=== PATIENT | female | born 1945 | race Caucasian/White ===

== ENCOUNTER 2021-05-14 14:04 | Inpatient (IN) ==
[2021-05-14 14:51] LABS: Basophils # (auto) 0.04 K/uL (0-0.2); Basophils % (auto) 0.4 %; Eosinophils # (auto) 0.23 K/uL (0-0.5); Eosinophils % (auto) 2.3 %; Hematocrit (blood only) 38.5 % (37-47); Hemoglobin 12.7 g/dL (12.0-16.0); Immature Granulocytes # (auto) 0.01 K/uL (0.00-0.02); Immature Granulocytes % (auto) 0.1 %; Lymphocytes # (auto) 2.02 K/uL (1.2-3.4); Lymphocytes % (auto) 20.4 %; Mean Corpuscular Hemoglobin 29.7 pg (25-34); Mean Corpuscular Volume 90.2 fL (80-100); Mean Platelet Volume 10.2 fL (7.4-10.4); Monocytes # (auto) 0.91 K/uL (0.11-0.59); Monocytes % (auto) 9.2 %; Neutrophils % (auto) 67.6 %; Platelet Count 337 K/uL (130-400); RDW Coefficient of Variation 13.6 % (11.5-14.5); RDW Standard Deviation 44.8 fL (36.4-46.3); Red Blood Count 4.27 M/uL (4.2-5.4); White Blood Count 9.91 K/uL (4.8-10.8)
[2021-05-14 15:08] LABS: Albumin Level 3.5 gm/dl (3.4-5.0); BUN Creatinine Ratio 14.4 (10-20); Calcium 10.4 mg/dl (8.5-10.1); Creatinine Clr Calc Pharmacy 49.4 ml/min; Est GFR (African American) 73.5 ml/min; Est GFR (Non-African American) 63.4 ml/min; Potassium 4.3 mmol/L (3.5-5.1)
[2021-05-14 15:10] LABS: Albumin Globulin Ratio 0.7 (0.9-2); Bilirubin,Total 0.3 mg/dl (0.2-1); Total Protein 8.5 gm/dl (6.4-8.2)
--- NOTE | 2021-05-14 18:56 | Emergency Department Note ---
History of Present Illness General Chief complaint: Abdominal Pain Stated complaint: ACUTE DIVERVERTICULITIS RX Time Seen by Provider: 05/14/21 18:46 Source: patient History of Present Illness Provider complaint: Abdominal pain Onset (ago): day(s) Location: abdomen and left Severity: mild Pain Consistency: + intermittent Maximum Pain Intensity: 3 Quality: + aching Relieved By: + none Exacerbated By: + none Associated symptoms: + fever/chills; no chest pain, no cough, no nausea/vomiting or no shortness of breath This is a 75-year-old female who presents with lower abdominal pain starting 6 days ago. She states it is in the middle of her lower abdomen and the left side. It is now radiating slightly to the right side. She describes it as a dull aching pain. No modifying factors. It did feel better for a few days but then got worse today. She called her diesel engine engineer who ordered a CT scan and blood work. The CAT scan showed an abscess with diverticulitis so she was sent here. The patient has had 6 episodes of diverticulitis since 2009. She states that she called her doctor on the and the doctor ordered Cipro and Flagyl for her. She never picked up the prescription because she stated that she felt better but then she felt worse today. She did have a fever of 101 today. She denies any cough or cold symptoms, chest pain, shortness of breath, diarrhea or urinary symptoms. She states that she is vaccinated for COVID-19 and has had a booster. Home Medications Medication Instructions Recorded Confirmed Type aspirin 81 mg tablet,delayed 81 mg PO QAM 10/20/18 05/13/21 History release butterbur root extract 50 mg 50 mg PO BID 04/19/19 05/13/21 History capsule (Petadolex) famotidine 20 mg tablet 20 mg PO BID 08/15/19 05/13/21 History fluticasone furoate 27.5 1 sprays INTNAS BID #5.9 ml 09/04/19 05/13/21 Rx mcg/actuation nasal spray,suspension acetaminophen 325 mg capsule 325 mg PO QID PRN 01/25/20 05/13/21 History (Tylenol) jvygtwy-swbtwufqppcmx-katizzeo 250 1 tab PO Q6H PRN 01/25/20 05/13/21 History mg-250 mg-65 mg tablet (Excedrin Migraine) pseudoephedrine HCl 30 mg tablet 30 mg PO Q6H PRN 01/25/20 05/13/21 History (Sudafed) atorvastatin 20 mg tablet (Lipitor) 20 mg PO QAM #90 tab 08/01/20 05/13/21 Rx levothyroxine 112 mcg tablet 112 mcg PO QAM #90 tab 11/06/20 05/13/21 Rx (Synthroid) vit A 300 mcg-C 200 mg-E 27 1 tab PO DAILY #30 tab 11/25/20 05/13/21 Rx os-przjfahy-xahvfl-lutein tablet (Eye Multivitamin With Lutein) mecobalamin (vitamin B12) 1,000 1,000 mcg PO DAILY #30 tab 11/26/20 05/13/21 Rx mcg chewable tablet cholecalciferol (vitamin D3) 50 100 mcg PO DAILY #30 cap 04/03/21 05/13/21 Rx mcg (2,000 unit) capsule omeprazole 20 mg capsule,delayed 20 mg PO DAILY PRN #30 cap 05/05/21 05/13/21 Rx release wheat dextrin 3 gram/4 gram oral 1.5 g PO BID 05/05/21 05/13/21 History powder (Benefiber Sugar Free (dextrin)) rizatriptan 10 mg tablet (Maxalt) See Rx Instructions PO .COMPLEX 05/13/21 Rx #10 tab Allergies Allergy/AdvReac Type Severity Reaction Status Date / Time No Known Drug Allergies Allergy Verified 05/13/21 14:32 Past Med/Surg History Medical History Diverticulitis Dry eye syndrome RT EYE Eustachian tube dysfunction History of diverticulitis Hyperlipidemia Hypertension never on medication previously elevated numbers but in generally within normal limits Hypothyroidism Migraine Osteoarthritis Surgical History H/O hand surgery 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) History of cataract surgery LEFT History of colonoscopy History of esophagogastroduodenoscopy (EGD) Hx of wisdom tooth extraction Family History Father Cardiac disorder Myocardial infarction Hypertension Uncle Lung disease Family history of diabetes mellitus Other Family history non-contributory Denies family history of Colon cancer Ovarian cancer Prostate cancer Breast cancer Social History Smoking Status: Former smoker Tobacco Type: Cigarettes packs per day: 0.5; Years Smoked: 10; Second Hand Exposure: No; Do You Dip or Chew Tobacco: No; Tobacco Cessation Education Requested by Patient: No Hx Alcohol Use: Yes Alcohol type: wine Hx Substance Use: No Preferred Language: Yakut Communication Ability: Effective Visual Impairment: No Limitations Hearing Ability: Use of Hearing Aid [place] Operator Required: No Beliefs That Will Affect Care: None marital status: Current Living Situation: Spouse current occupational status: retired Other Information That Helps Us Care for You: No Feels Safe at Home: Yes Safety Concerns: Feels Safe At This Time Childhood Exposure to Second-Hand Smoke: Yes Dental Care, Regularly: Yes Physical Activity Frequency: 5-6 Times per Week Seatbelt Use: always Sunscreen Use: Yes Assistive Devices: Glasses and Hearing Aid - Bilateral Review of Systems See HPI for pertinent positives & negatives. and A total of 10 systems reviewed and were otherwise negative Physical Exam Vital Signs Vital Signs - 24 hr 05/14/21 14:12 05/14/21 19:20 Temperature 36.3 C L Temperature Source Temporal Artery Scan Pulse Rate 53 L Pulse Rate [Finger] 52 L Respiratory Rate 16 17 Blood Pressure 116/84 Blood Pressure [Left Arm] 144/81 H Blood Pressure Mean 94 Blood Pressure Mean [Left Arm] 102 Blood Pressure Position [Left Arm] Lying Pulse Oximetry 98 98 Sepsis Recent Fever Within 48 Hours No Sepsis New/Unexplained Change in Mental Status No Sepsis Action Taken by Nursing No Action Required Constitutional: Vital signs reviewed. Eyes: Pupils are equal round reactive to light. Conjunctiva are noninjected. ENT: Pharynx is clear without erythema or exudate. Mucous membranes are moist. Neck supple without meningeal signs. Respiratory: Clear to auscultation bilaterally. Breath sounds are equal bilaterally. Cardiovascular: Regular rate and rhythm. No rubs or gallops. GI: Soft, nondistended with mild left lower quadrant tenderness. No guarding. Bowel sounds are present. Musculoskeletal: No peripheral edema. No lower extremity tenderness. Integumentary: No cyanosis. or jaundice. Neurological: The patient is awake and alert. No focal deficits. Psychiatric: Normal affect. Not anxious appearing. Course Administered Medications Discontinued Medications Piperacillin Sod/Tazobactam Sod (Zosyn) 4.5 gm in 120 mls @ 240 mls/hr IV NOW ONE Stop: 05/14/21 19:26 Last Infusion: 05/14/21 20:41 Dose: 0 mls/hr Documented by: [id number] Admin: 05/14/21 20:09 Dose: 240 mls/hr Documented by: [id number] Medical Decision Making Differential Diagnosis Diverticulitis, perforation, abscess, colitis, bacteremia Medical Records Attestation: I reviewed the patient's medical records. I did perform a limited focused review of portions of the patient's old chart on the electronic medical record. The patient had blood work today which showed an unremarkable CBC. She also had a CT scan of the abdomen pelvis which showed the following:IMPRESSION: 1. Moderate sigmoid diverticulosis with evidence of acute sigmoid divertic ulitis. 2. There is a 2.4 x 1.4 cm focus of phlegmonous change/developing abscess immediately adjacent to the sigmoid colon. 3. No intraperitoneal free air is identified. Home Medications Current Medication List: was personally reviewed by me Laboratory Data Attestation: I reviewed the patient's lab results. Result diagrams: 05/14/21 14:41 05/14/21 14:41 Lab Results 05/14/21 05/14/21 05/14/21 Range/Units 14:41 14:41 19:15 WBC 9.91 (4.8-10.8) K/uL RBC 4.27 (4.2-5.4) M/uL Hgb 12.7 (12.0-16.0) g/dL Hct 38.5 (37-47) % MCV 90.2 (80-100) fL MCH 29.7 (25-34) pg MCHC 33.0 (32-36) g/dL RDW Std Deviation 44.8 (36.4-46.3) fL RDW Coeff of Abel 13.6 (11.5-14.5) % Plt Count 337 (130-400) K/uL MPV 10.2 (7.4-10.4) fL Immature Gran % (Auto) 0.1 % Neut % (Auto) 67.6 % Lymph % (Auto) 20.4 % George % (Auto) 9.2 % Eos % (Auto) 2.3 % Baso % (Auto) 0.4 % Neut # (Auto) 6.70 H (1.4-6.5) K/uL Lymph # (Auto) 2.02 (1.2-3.4) K/uL George # (Auto) 0.91 H (0.11-0.59) K/uL Eos # (Auto) 0.23 (0-0.5) K/uL Baso # (Auto) 0.04 (0-0.2) K/uL Immature Gran # (Auto) 0.01 (0.00-0.02) K/uL Sodium 137 (136-145) mmol/L Potassium 4.3 (3.5-5.1) mmol/L Chloride 103 (98-107) mmol/L Carbon Dioxide 26 (21-32) mmol/L Anion Gap 8.0 (3-11) BUN 13 (7-18) mg/dl Creatinine 0.89 (0.6-1.2) mg/dl Est Cr Clr Drug Dosing 49.4 ml/min Est GFR ( Amer) 73.5 ml/min Est GFR (Non-Af Amer) 63.4 ml/min BUN/Creatinine Ratio 14.4 (10-20) Glucose 91 (70-99) mg/dl Calcium 10.4 H (8.5-10.1) mg/dl Total Bilirubin 0.3 (0.2-1) mg/dl AST 20 (15-37) U/L ALT 26 (12-78) U/L Alkaline Phosphatase 117 (45-117) U/L Total Protein 8.5 H (6.4-8.2) gm/dl Albumin 3.5 (3.4-5.0) gm/dl Globulin 5.0 H (2.5-4.0) gm/dl Albumin/Globulin Ratio 0.7 L (0.9-2) Lipase 132 (73-393) U/L SARS-CoV-2, RNA, NAAT NEGATIVE (NEGATIVE) MDM Narrative I did evaluate the patient as noted above. She is presenting with a CAT scan done earlier today which showed diverticulitis with a developing abscess near the sigmoid colon. IV access was established. I did order blood cultures. She was given Zosyn 4.5 g IV. I did review her lab work from earlier today which showed no leukocytosis. I did not see any indication to repeat them at this time. Covid screening testing is negative. I did discuss case with Dr. Garay of surgery who did not feel any acute surgical intervention was indicated at this time. I did discuss case with the hospitalist and machine adjuster leader case trim. Impression & Plan Abscess of sigmoid colon due to diverticulitis Discharge Plan Visit Data Chief Complaint: Abdominal Pain Stated Complaint: ACUTE DIVERVERTICULITIS RX ED Provider: Isidro Angel Discharge Problem: Abscess of sigmoid colon due to diverticulitis Patient Disposition: Admitted As Inpatient Discharge Instructions Interventions: ED Discharge Assessment Last Done: 05/14/21 22:33
[2021-05-14] MEDS ORDERED: PIPERACILL/TAZOBAC CONSULT ACTIVE PRN ×2 (18:57→22:28)
[2021-05-14] MEDS ORDERED: PIPERACILLIN/TAZOBACTAM 4.5 GM/120 ML BAG IV ONE (18:57)
--- NOTE | 2021-05-14 20:32 | History & Physical Report ---
Date of Service May 14, 2021 Assessment & Plan (1) Abscess of sigmoid colon due to diverticulitis: Plan: 75 yo relatively healthy F admitted for management of sigmoid diverticulitis with abscess. Diverticulitis of sigmoid colon with developing abscess - Moderate sigmoid diverticulosis with evidence of acute sigmoid diverticulitis. - 2.4 x 1.4 cm focus of phlegmonous change/developing abscess immediately adjacent to the sigmoid colon. - clear liquid diet, appreciate general surgery's recommendations - Zosyn - afebrile, no elevated WBC - toradol, morphine for prn pain control - prn zofran for nausea Chronic Conditions GERD: continue daily PPI, famotidine Hypothyroidism: continue daily levothyroxine HLD: continue daily ASA and statin Allergies: BID flonase DVT ppx: ambulate ad samreen FEN/GI: clear liquid diet, ppi, h2 noam Bowel regimen: NA Code Status: DNR/DNI Dispo: Med/Surg (2) GERD without esophagitis: (3) Hypothyroidism: (4) Hyperlipidemia: History of Present Illness Primary Care Provider: Bridget Perez MD Pleasant 75 yo F with PMH diverticulitis, GERD, hypothyroidism, osteoporosis, HLD who presents to the ER for 1 week of ongoing abdominal pain. She states the symptoms started on May 08, at which time she called doctor's office to get antibiotics in case she got worse over the weekend. She was prescribed metronidazole and ciprofloxacin. She was febrile to 101F the next day but did not take the antibiotics because they have made her nauseous and have diarrhea in the past. She switched herself to a liquid diet and was managing the abdominal pain with that. This was improving until yesterday 05/13 when she went to a low residue diet and had worsening pain. She describes the pain as coming and going, sharp and dull, with some radiation to her back. No nausea/vomiting. Fever x1, no chills. Allergies Allergy/AdvReac Type Severity Reaction Status Date / Time No Known Drug Allergies Allergy Verified 05/13/21 14:32 Home Medications Medication Instructions Recorded Confirmed Type aspirin 81 mg tablet,delayed 81 mg PO QAM 10/20/18 05/13/21 History release butterbur root extract 50 mg 50 mg PO BID 04/19/19 05/13/21 History capsule (Petadolex) famotidine 20 mg tablet 20 mg PO BID 08/15/19 05/13/21 History fluticasone furoate 27.5 1 sprays INTNAS BID #5.9 ml 09/04/19 05/13/21 Rx mcg/actuation nasal spray,suspension acetaminophen 325 mg capsule 325 mg PO QID PRN 01/25/20 05/13/21 History (Tylenol) fbappht-lwvmswzgwqtsb-mlmljsit 250 1 tab PO Q6H PRN 01/25/20 05/13/21 History mg-250 mg-65 mg tablet (Excedrin Migraine) pseudoephedrine HCl 30 mg tablet 30 mg PO Q6H PRN 01/25/20 05/13/21 History (Sudafed) atorvastatin 20 mg tablet (Lipitor) 20 mg PO QAM #90 tab 08/01/20 05/13/21 Rx levothyroxine 112 mcg tablet 112 mcg PO QAM #90 tab 11/06/20 05/13/21 Rx (Synthroid) vit A 300 mcg-C 200 mg-E 27 1 tab PO DAILY #30 tab 11/25/20 05/13/21 Rx zm-nqxmgjmj-anvatg-lutein tablet (Eye Multivitamin With Lutein) mecobalamin (vitamin B12) 1,000 1,000 mcg PO DAILY #30 tab 11/26/20 05/13/21 Rx mcg chewable tablet cholecalciferol (vitamin D3) 50 100 mcg PO DAILY #30 cap 04/03/21 05/13/21 Rx mcg (2,000 unit) capsule omeprazole 20 mg capsule,delayed 20 mg PO DAILY PRN #30 cap 05/05/21 05/13/21 Rx release wheat dextrin 3 gram/4 gram oral 1.5 g PO BID 05/05/21 05/13/21 History powder (Benefiber Sugar Free (dextrin)) rizatriptan 10 mg tablet (Maxalt) See Rx Instructions PO .COMPLEX 05/13/21 Rx #10 tab Past Med/Surg History Medical History Diverticulitis Dry eye syndrome RT EYE Eustachian tube dysfunction History of diverticulitis Hyperlipidemia Hypertension never on medication previously elevated numbers but in generally within normal limits Hypothyroidism Migraine Osteoarthritis Surgical History H/O hand surgery 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) History of cataract surgery LEFT History of colonoscopy History of esophagogastroduodenoscopy (EGD) Hx of wisdom tooth extraction Family History Father Cardiac disorder Myocardial infarction Hypertension Uncle Lung disease Family history of diabetes mellitus Other Family history non-contributory Denies family history of Colon cancer Ovarian cancer Prostate cancer Breast cancer Social History Smoking Status: Former smoker Tobacco Type: Cigarettes packs per day: 0.5; Years Smoked: 10; Second Hand Exposure: No; Do You Dip or Chew Tobacco: No; Tobacco Cessation Education Requested by Patient: No Hx Alcohol Use: Yes Alcohol type: wine Hx Substance Use: No Preferred Language: Arabic Communication Ability: Effective Visual Impairment: No Limitations Hearing Ability: Use of Hearing Aid Instrument Maker Required: No Beliefs That Will Affect Care: None marital status: Current Living Situation: Spouse current occupational status: retired Other Information That Helps Us Care for You: No Feels Safe at Home: Yes Safety Concerns: Feels Safe At This Time Childhood Exposure to Second-Hand Smoke: Yes Dental Care, Regularly: Yes Physical Activity Frequency: 5-6 Times per Week Seatbelt Use: always Sunscreen Use: Yes Assistive Devices: Glasses and Hearing Aid - Bilateral Review of Systems Review of Systems: All systems reviewed & are unremarkable except as noted in Subjective Physical Exam Physical Exam: Constitutional: in no apparent distress, sitting comfortably in bed. Eyes: EOMI, pupils equal and reactive bilaterally, no scleral icterus Cardiac: RRR, no murmurs, gallops or rubs. Normal S1, S2 Pulm: CTA BL, no wheezes, rhonchi, crackles or rubs, moving air well throughout both lungs Abd: soft, TTP in LLQ, nondistended, diminished bowel sounds, no rebound or guarding Extremities: 2+ peripheral pulses, no edema Neuro: no focal deficits, moving all 4 limbs, A&Ox3 Results & Data Results & Data ([facility]) Vital Signs (Past 12 Hours) Vital Signs Temp Pulse Pulse Resp BP BP Pulse Ox 05/14/21 19:20 52 L 17 144/81 H 98 05/14/21 14:12 36.3 C L 53 L 16 116/84 98 Laboratory Results Laboratory Results WBC 9.91 K/uL (4.8-10.8) 05/14/21 14:41 RBC 4.27 M/uL (4.2-5.4) 05/14/21 14:41 Hgb 12.7 g/dL (12.0-16.0) 05/14/21 14:41 Hct 38.5 % (37-47) 05/14/21 14:41 MCV 90.2 fL (80-100) 05/14/21 14:41 MCH 29.7 pg (25-34) 05/14/21 14:41 MCHC 33.0 g/dL (32-36) 05/14/21 14:41 RDW Std Deviation 44.8 fL (36.4-46.3) 05/14/21 14:41 RDW Coeff of Abel 13.6 % (11.5-14.5) 05/14/21 14:41 Plt Count 337 K/uL (130-400) 05/14/21 14:41 MPV 10.2 fL (7.4-10.4) 05/14/21 14:41 Immature Gran % (Auto) 0.1 % 05/14/21 14:41 Neut % (Auto) 67.6 % 05/14/21 14:41 Lymph % (Auto) 20.4 % 05/14/21 14:41 Nance % (Auto) 9.2 % 05/14/21 14:41 Eos % (Auto) 2.3 % 05/14/21 14:41 Baso % (Auto) 0.4 % 05/14/21 14:41 Neut # (Auto) 6.70 K/uL (1.4-6.5) H 05/14/21 14:41 Lymph # (Auto) 2.02 K/uL (1.2-3.4) 05/14/21 14:41 Nance # (Auto) 0.91 K/uL (0.11-0.59) H 05/14/21 14:41 Eos # (Auto) 0.23 K/uL (0-0.5) 05/14/21 14:41 Baso # (Auto) 0.04 K/uL (0-0.2) 05/14/21 14:41 Immature Gran # (Auto) 0.01 K/uL (0.00-0.02) 05/14/21 14:41 Sodium 137 mmol/L (136-145) 05/14/21 14:41 Potassium 4.3 mmol/L (3.5-5.1) 05/14/21 14:41 Chloride 103 mmol/L (98-107) 05/14/21 14:41 Carbon Dioxide 26 mmol/L (21-32) 05/14/21 14:41 Anion Gap 8.0 (3-11) 05/14/21 14:41 BUN 13 mg/dl (7-18) 05/14/21 14:41 Creatinine 0.89 mg/dl (0.6-1.2) 05/14/21 14:41 Est Cr Clr Drug Dosing 49.4 ml/min 05/14/21 14:41 Est GFR ( Amer) 73.5 ml/min 05/14/21 14:41 Est GFR (Non-Af Amer) 63.4 ml/min 05/14/21 14:41 BUN/Creatinine Ratio 14.4 (10-20) 05/14/21 14:41 Glucose 91 mg/dl (70-99) 05/14/21 14:41 Calcium 10.4 mg/dl (8.5-10.1) H 05/14/21 14:41 Total Bilirubin 0.3 mg/dl (0.2-1) 05/14/21 14:41 AST 20 U/L (15-37) 05/14/21 14:41 ALT 26 U/L (12-78) 05/14/21 14:41 Alkaline Phosphatase 117 U/L (45-117) 05/14/21 14:41 Total Protein 8.5 gm/dl (6.4-8.2) H 05/14/21 14:41 Albumin 3.5 gm/dl (3.4-5.0) 05/14/21 14:41 Globulin 5.0 gm/dl (2.5-4.0) H 05/14/21 14:41 Albumin/Globulin Ratio 0.7 (0.9-2) L 05/14/21 14:41 Lipase 132 U/L (73-393) 05/14/21 14:41 SARS-CoV-2, RNA, NAAT NEGATIVE (NEGATIVE) 05/14/21 19:15 CT A/P: IMPRESSION: 1. Moderate sigmoid diverticulosis with evidence of acute sigmoid diverticulitis. 2. There is a 2.4 x 1.4 cm focus of phlegmonous change/developing abscess immediately adjacent to the sigmoid colon. 3. No intraperitoneal free air is identified. 4. The bladder wall appears circumferentially thickened. Correlate with clinical findings and urinalysis. 5. Additional findings as above. Supervising Physician Co-Signing Physician Notes Attending addendum: I have physically seen this patient, have supervised the medical residents activities, and agree with the H&P unless as otherwise noted. Assessment and Plan: Acute sigmoid diverticulitis/diverticular abscess/phlegmon- NPO LR 100 mils per hour Zofran 4 mg IV every 6 hours as needed Famotidine 20 mg IV every 12 hours Zosyn 4.5 g IV every 8 hours Acetaminophen 1000 mg IV every 8 hours as needed mild pain or fever Follow serial CBC with differential and chemistry profile Consult surgery GERD- Change Protonix orally to famotidine IV as above Remaining orders and notations as noted Resident Activity Tracking Resident Involvement: Resident Care Provided Care Provided: Adult Hospital Medicine
[2021-05-15] MEDS ORDERED: MoRPHine SULFATE 2 MG/ML CARP IV PRN (01:39)
[2021-05-15] MEDS: PIPERACILLIN/TAZOBACTAM 3.375 GM in DEXTROSE 5% 100 ML IV SCH ×3 (02:03→17:16)
[2021-05-15] MEDS: FAMOTIDINE 20 MG TAB PO SCH ×3 (02:04→20:55)
[2021-05-15] MEDS: LEVOTHYROXINE SODIUM 112 MCG TABLET PO SCH (05:59)
[2021-05-15] MEDS: KETOROLAC TROMETHAMINE 15 MG/ML VIAL IV PRN ×2 (06:00→16:16)
[2021-05-15 06:44] LABS: Basophils # (auto) 0.03 K/uL (0-0.2); Basophils % (auto) 0.4 %; Eosinophils # (auto) 0.32 K/uL (0-0.5); Eosinophils % (auto) 4.3 %; Hemoglobin 11.4 g/dL (12.0-16.0); Immature Granulocytes # (auto) 0.01 K/uL (0.00-0.02); Immature Granulocytes % (auto) 0.1 %; Lymphocytes # (auto) 1.74 K/uL (1.2-3.4); Lymphocytes % (auto) 23.4 %; Mean Corpuscular Hemoglobin 29.5 pg (25-34); Mean Corpuscular Hgb Conc 32.6 g/dL (32-36); Mean Corpuscular Volume 90.4 fL (80-100); Mean Platelet Volume 10.1 fL (7.4-10.4); Monocytes % (auto) 9.4 %; Neutrophils # (auto) 4.63 K/uL (1.4-6.5); Neutrophils % (auto) 62.4 %; Platelet Count 323 K/uL (130-400); RDW Coefficient of Variation 13.6 % (11.5-14.5); RDW Standard Deviation 45.4 fL (36.4-46.3); Red Blood Count 3.87 M/uL (4.2-5.4); White Blood Count 7.43 K/uL (4.8-10.8)
--- NOTE | 2021-05-15 07:08 | Surgery Consultation ---
Date of Consultation May 15, 2021 Assessment & Plan (1) Abscess of sigmoid colon due to diverticulitis: (2) Diverticulosis: 75-year-old woman presents with acute diverticulitis with developing phlegmon/possible abscess. She is feeling significantly improved on 12 hours of antibiotics. There is no acute surgical intervention required at this moment. We will continue the IV antibiotics and continue to monitor her. We will follow along with you. History of Present Illness Reason for Consultation: Diverticulitis Attending Physician: David Alvarado MD History of Present Illness 75-year-old woman presents with left lower quadrant abdominal pain. She has had a prior history of diverticulitis dating back to 2000. She has flares every few years. Her first attack in 2000 placed her in the hospital. Subsequent attacks have been treated with outpatient antibiotics. She developed left-sided abdomi nal pain and fever. She placed herself on a clear liquid diet and the pain seemed to improve, however it then subsequently worsened. In the emergency department, CT scan demonstrates diverticulitis with phlegmon/possible developing abscess. No free air. She denies nausea or vomiting. She denies changes in bowel habits. She denies chest pain or shortness of breath. This morning she states she feels significantly improved from when she was admitted last night. Allergies Allergy/AdvReac Type Severity Reaction Status Date / Time No Known Drug Allergies Allergy Verified 05/13/21 14:32 Home Medications Medication Instructions Recorded Confirmed Type aspirin 81 mg tablet,delayed 81 mg PO QAM 10/20/18 05/13/21 History release butterbur root extract 50 mg 50 mg PO BID 04/19/19 05/13/21 History capsule (Petadolex) famotidine 20 mg tablet 20 mg PO BID 08/15/19 05/13/21 History fluticasone furoate 27.5 1 sprays INTNAS BID #5.9 ml 09/04/19 05/13/21 Rx mcg/actuation nasal spray,suspension acetaminophen 325 mg capsule 325 mg PO QID PRN 01/25/20 05/13/21 History (Tylenol) zqocrzt-gcaygnheztenw-cazgyqhu 250 1 tab PO Q6H PRN 01/25/20 05/13/21 History mg-250 mg-65 mg tablet (Excedrin Migraine) pseudoephedrine HCl 30 mg tablet 30 mg PO Q6H PRN 01/25/20 05/13/21 History (Sudafed) atorvastatin 20 mg tablet (Lipitor) 20 mg PO QAM #90 tab 08/01/20 05/13/21 Rx levothyroxine 112 mcg tablet 112 mcg PO QAM #90 tab 11/06/20 05/13/21 Rx (Synthroid) vit A 300 mcg-C 200 mg-E 27 1 tab PO DAILY #30 tab 11/25/20 05/13/21 Rx gx-xraktysg-aiigpx-lutein tablet (Eye Multivitamin With Lutein) mecobalamin (vitamin B12) 1,000 1,000 mcg PO DAILY #30 tab 11/26/20 05/13/21 Rx mcg chewable tablet cholecalciferol (vitamin D3) 50 100 mcg PO DAILY #30 cap 04/03/21 05/13/21 Rx mcg (2,000 unit) capsule omeprazole 20 mg capsule,delayed 20 mg PO DAILY PRN #30 cap 05/05/21 05/13/21 Rx release wheat dextrin 3 gram/4 gram oral 1.5 g PO BID 05/05/21 05/13/21 History powder (Benefiber Sugar Free (dextrin)) rizatriptan 10 mg tablet (Maxalt) See Rx Instructions PO .COMPLEX 05/13/21 Rx #10 tab Patient History Medical History Diverticulitis Dry eye syndrome RT EYE Eustachian tube dysfunction History of diverticulitis Hyperlipidemia Hypertension never on medication previously elevated numbers but in generally within normal limits Hypothyroidism Migraine Osteoarthritis Surgical History H/O hand surgery 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) History of cataract surgery LEFT History of colonoscopy History of esophagogastroduodenoscopy (EGD) Hx of wisdom tooth extraction Family History Father Cardiac disorder Myocardial infarction Hypertension Uncle Lung disease Family history of diabetes mellitus Other Family history non-contributory Denies family history of Colon cancer Ovarian cancer Prostate cancer Breast cancer Social History Smoking Status: Former smoker Tobacco Type: Cigarettes packs per day: 0.5; Years Smoked: 10; Second Hand Exposure: No; Do You Dip or Chew Tobacco: No; Tobacco Cessation Education Requested by Patient: No Hx Alcohol Use: Yes Alcohol type: wine Hx Substance Use: No Preferred Language: Sinhala Communication Ability: Effective Visual Impairment: No Limitations Hearing Ability: Use of Hearing Aid Automotive Electrician Required: No Beliefs That Will Affect Care: None marital status: Current Living Situation: Spouse current occupational status: retired Other Information That Helps Us Care for You: No Feels Safe at Home: Yes Safety Concerns: Feels Safe At This Time Childhood Exposure to Second-Hand Smoke: Yes Dental Care, Regularly: Yes Physical Activity Frequency: 5-6 Times per Week Seatbelt Use: always Sunscreen Use: Yes Assistive Devices: Glasses and Hearing Aid - Bilateral Review of Systems Review of Systems: All systems reviewed & are unremarkable except as noted in HPI & below Physical Exam Constitutional: WD/WN, vitals as above Eyes: PERRL, conjunctivae normal, anicteric sclerae Neck: trachea midline, no thyromegaly Respiratory: normal respiratory effort; no respiratory distress and no labored breathing Cardiovascular: Rate/Rhythm: regular rate and regular rhythm Gastrointestinal (Abdomen): Inspection/Auscultation: abdomen normal to inspection; abdomen not distended and no abdominal surgical scar Percussion/Palpation: + abdomen tender (Suprapubic region/left lower quadrant) and abdomen soft; no guarding and abdomen not rigid Musculoskeletal: Extremities: no cyanosis and no clubbing Skin: no rashes, warm and dry Psychiatric: A+Ox3, euthymic affect Results & Data ([facility]) Vital Signs (Past 12 Hours) Vital Signs Temp Pulse Resp BP Pulse Ox 05/14/21 22:28 37.2 C 80 16 125/76 95 05/14/21 20:39 50 L 16 144/58 H 98 05/14/21 19:20 52 L 17 144/81 H 98 Laboratory Results 05/15/21 05/15/21 05/15/21 Range/Units 06:26 06:26 06:26 WBC 7.43 (4.8-10.8) K/uL RBC 3.87 L (4.2-5.4) M/uL Hgb 11.4 L (12.0-16.0) g/dL Hct 35.0 L (37-47) % MCV 90.4 (80-100) fL MCH 29.5 (25-34) pg MCHC 32.6 (32-36) g/dL RDW Std Deviation 45.4 (36.4-46.3) fL RDW Coeff of Abel 13.6 (11.5-14.5) % Plt Count 323 (130-400) K/uL MPV 10.1 (7.4-10.4) fL Immature Gran % (Auto) 0.1 % Neut % (Auto) 62.4 % Lymph % (Auto) 23.4 % Meigs % (Auto) 9.4 % Eos % (Auto) 4.3 % Baso % (Auto) 0.4 % Neut # (Auto) 4.63 (1.4-6.5) K/uL Lymph # (Auto) 1.74 (1.2-3.4) K/uL Meigs # (Auto) 0.70 H (0.11-0.59) K/uL Eos # (Auto) 0.32 (0-0.5) K/uL Baso # (Auto) 0.03 (0-0.2) K/uL Immature Gran # (Auto) 0.01 (0.00-0.02) K/uL Sodium Pending (136-145) mmol/L Potassium Pending (3.5-5.1) mmol/L Chloride Pending (98-107) mmol/L Carbon Dioxide Pending (21-32) mmol/L Anion Gap Pending (3-11) BUN Pending (7-18) mg/dl Creatinine Pending (0.6-1.2) mg/dl Est Cr Clr Drug Dosing Pending ml/min Est GFR ( Amer) Pending ml/min Est GFR (Non-Af Amer) Pending ml/min BUN/Creatinine Ratio Pending (10-20) Glucose Pending (70-99) mg/dl Calcium Pending (8.5-10.1) mg/dl Total Bilirubin (0.2-1) mg/dl AST (15-37) U/L ALT (12-78) U/L Alkaline Phosphatase (45-117) U/L Total Protein (6.4-8.2) gm/dl Albumin (3.4-5.0) gm/dl Globulin (2.5-4.0) gm/dl Albumin/Globulin Ratio (0.9-2) Lipase (73-393) U/L Hepatitis C Ab Screen Pending SARS-CoV-2, RNA, NAAT (NEGATIVE) 05/14/21 05/14/21 05/14/21 Range/Units 19:15 14:41 14:41 WBC 9.91 (4.8-10.8) K/uL RBC 4.27 (4.2-5.4) M/uL Hgb 12.7 (12.0-16.0) g/dL Hct 38.5 (37-47) % MCV 90.2 (80-100) fL MCH 29.7 (25-34) pg MCHC 33.0 (32-36) g/dL RDW Std Deviation 44.8 (36.4-46.3) fL RDW Coeff of Abel 13.6 (11.5-14.5) % Plt Count 337 (130-400) K/uL MPV 10.2 (7.4-10.4) fL Immature Gran % (Auto) 0.1 % Neut % (Auto) 67.6 % Lymph % (Auto) 20.4 % Meigs % (Auto) 9.2 % Eos % (Auto) 2.3 % Baso % (Auto) 0.4 % Neut # (Auto) 6.70 H (1.4-6.5) K/uL Lymph # (Auto) 2.02 (1.2-3.4) K/uL Meigs # (Auto) 0.91 H (0.11-0.59) K/uL Eos # (Auto) 0.23 (0-0.5) K/uL Baso # (Auto) 0.04 (0-0.2) K/uL Immature Gran # (Auto) 0.01 (0.00-0.02) K/uL Sodium 137 (136-145) mmol/L Potassium 4.3 (3.5-5.1) mmol/L Chloride 103 (98-107) mmol/L Carbon Dioxide 26 (21-32) mmol/L Anion Gap 8.0 (3-11) BUN 13 (7-18) mg/dl Creatinine 0.89 (0.6-1.2) mg/dl Est Cr Clr Drug Dosing 49.4 ml/min Est GFR ( Amer) 73.5 ml/min Est GFR (Non-Af Amer) 63.4 ml/min BUN/Creatinine Ratio 14.4 (10-20) Glucose 91 (70-99) mg/dl Calcium 10.4 H (8.5-10.1) mg/dl Total Bilirubin 0.3 (0.2-1) mg/dl AST 20 (15-37) U/L ALT 26 (12-78) U/L Alkaline Phosphatase 117 (45-117) U/L Total Protein 8.5 H (6.4-8.2) gm/dl Albumin 3.5 (3.4-5.0) gm/dl Globulin 5.0 H (2.5-4.0) gm/dl Albumin/Globulin Ratio 0.7 L (0.9-2) Lipase 132 (73-393) U/L Hepatitis C Ab Screen SARS-CoV-2, RNA, NAAT NEGATIVE (NEGATIVE) Diagnostic Findings CT SCAN OF THE ABDOMEN AND PELVIS WITH IV CONTRAST CLINICAL HISTORY: Left lower quadrant abdominal pain. COMPARISON STUDY: No priors. TECHNIQUE: Following the IV administration of 95 cc of Optiray 320, CT scan of the abdomen and pelvis is performed from the lung bases to the proximal femora. Images are reviewed in the axial, sagittal, and coronal planes. IV contrast was administered without complication. Oral contrast was utilized. A dose lowering technique was utilized adhering to the principles of ALARA. CT DOSE: 479.43 mGycm FINDINGS: Lung bases: The heart is top normal in size noting trace pericardial effusion. There are coronary artery calcifications. The lung bases are clear noting bibasilar scarring/atelectasis. Liver: The contrast-enhanced liver is normal in size, contour, and attenuation. There is no intrahepatic biliary ductal dilatation. The hepatic veins and portal veins are patent. Gallbladder: Unremarkable. Spleen: Normal in size and attenuation. Pancreas: Unremarkable. Adrenal glands: Unremarkable. Kidneys: The contrast enhanced kidneys are normal in size and without hydronephrosis. The kidneys enhance symmetrically. Abdominal vasculature: The abdominal aorta is normal in course and caliber noting mild atherosclerotic calcification. Bowel: There is moderate sigmoid diverticulosis. There is wall thickening with pericolonic inflammation and fluid involving the sigmoid colon consistent with acute diverticulitis. There is a 2.4 x 1.4 cm focus of phlegmonous change/developing abscess adjacent to the sigmoid colon seen on image #304. There is moderate colonic fecal retention. No bowel obstruction is seen. Enteric contrast reaches the distal small bowel. The appendix is well-visualized and normal. Peritoneum: There is no intraperitoneal free air or abdominal ascites. There is a small fat-containing umbilical hernia. Lymphadenopathy: None. Pelvic viscera: The bladder wall appears circumferentially thickened. The uterus and adnexa are normal as imaged. Skeletal structures: The skeletal structures are osteopenic. There is moderate lumbosacral spondylosis. Bilateral pars defects at L5 with 9 mm anterolisthesis and advanced disc space narrowing at L5-S1. No lytic or blastic lesions are seen. IMPRESSION: 1. Moderate sigmoid diverticulosis with evidence of acute sigmoid diverticulitis. 2. There is a 2.4 x 1.4 cm focus of phlegmonous change/developing abscess immediately adjacent to the sigmoid colon. 3. No intraperitoneal free air is identified. 4. The bladder wall appears circumferentially thickened. Correlate with clinical findings and urinalysis. 5. Additional findings as above.
--- NOTE | 2021-05-15 07:41 | Hospitalist Progress Note ---
Date of Service May 15, 2021 Assessment & Plan (1) Abscess of sigmoid colon due to diverticulitis: Plan: 75 yo relatively healthy F w/ PMHx of recurrent diverticulitis flares, bradycardia, gerd, hypothyroidism, HLD admitted for management of sigmoid diverticulitis with abscess. Diverticulitis of sigmoid colon with developing phlegmon / possible abscess - Moderate sigmoid diverticulosis with evidence of acute sigmoid diverticulitis. - 2.4 x 1.4 cm focus of phlegmonous change/developing abscess immediately adjacent to the sigmoid colon. - clear liquid diet - Zosyn - afebrile, no elevated WBC - toradol, morphine for prn pain control - prn zofran for nausea Chronic Conditions migraines: continue home Maxalt GERD: continue daily PPI, famotidine Hypothyroidism: continue daily levothyroxine HLD: continue daily ASA and statin Allergies: BID flonase DVT ppx: scds, sq heparin q12 FEN/GI: clear liquid diet, ppi, h2 noam Bowel regimen: NA Code Status: DNR/DNI Dispo: Med/Surg (2) GERD without esophagitis: (3) Hypothyroidism: (4) Hyperlipidemia: Admission and Anticipated Discharge Date Admission Date: May 14, 2021 Supervising Physician Co-Signing Physician Notes Resident Physician Supervision Note: I independently interviewed and examined the patient and verified the rodriguez history and physical, reviewed labs and image studies and agree with resident Dr. Hua findings and care plan. Subjective PMHx of diverticulitis (first ep in 2000, has had 6 recurrences; medically managed w/ diet or medications) and GERD. Came here for ct per outpt GI rec. Newly established / [facility]. Normally eats a high fiber diet. Goes to clear liq when she becomes symptomatic. Intermittent sharp abd pain mostly LLQ, occasional mid lower. Aching of mid back. Former smoker. Review of Systems Review of Systems: All systems reviewed & are unremarkable except as noted in HPI & below Constitutional: Denies fever, chills Eyes: Denies blurry vision, vision changes ENT: Denies sore throat, sinus pain Cardiovascular: Denies chest pain, palpitations Respiratory: Denies shortness of breath Gastrointestinal: Denies nausea, vomiting. Does not feel constipation. Last BM5 days ago. Attributes to liq diet. Genitourinary: Denies urinary symptoms including dysuria Musculoskeletal: Denies weakness, muscle aches/pain, joint aches/pain Neurological: Denies numbness, tingling, focal weakness, dizziness. Has headache, attributes to usual migraines Physical Exam Physical Exam: General: Grossly A&O. NAD. Cooperative. HEENT: Atraumatic, normocephalic. EOMI Pulm: Crackles at bases No respiratory distress. Cardiac: RRR, -mrg. Puffy LE, no pitting. Abdominal: Mild LLQ TTP. No rebound/guarding. nondistended, soft. Results & Data Results & Data ([facility]) Vital Signs (Past 12 Hours) Vital Signs HR low 50s. 80 x1. other vitals appropriate Temp Pulse Resp BP Pulse Ox 05/14/21 22:28 37.2 C 80 16 125/76 95 05/14/21 20:39 50 L 16 144/58 H 98 Laboratory Results no leukocytosis. Hb 12.7->11.4. BMP stable. Ca borderline elevated. Lipase 132. Diagnostic Findings CT abd pelv w/ IV contrast FINDINGS: Lung bases: The heart is top normal in size noting trace pericardial effusion. There are coronary artery calcifications. The lung bases are clear noting bibasilar scarring/atelectasis. Liver: The contrast-enhanced liver is normal in size, contour, and attenuation. There is no intrahepatic biliary ductal dilatation. The hepatic veins and portal veins are patent. Gallbladder: Unremarkable. Spleen: Normal in size and attenuation. Pancreas: Unremarkable. Adrenal glands: Unremarkable. Kidneys: The contrast enhanced kidneys are normal in size and without hydronephrosis. The kidneys enhance symmetrically. Abdominal vasculature: The abdominal aorta is normal in course and caliber noting mild atherosclerotic calcification. Bowel: There is moderate sigmoid diverticulosis. There is wall thickening with pericolonic inflammation and fluid involving the sigmoid colon consistent with acute diverticulitis. There is a 2.4 x 1.4 cm focus of phlegmonous change/developing abscess adjacent to the sigmoid colon seen on image #304. There is moderate colonic fecal retention. No bowel obstruction is seen. Enteric contrast reaches the distal small bowel. The appendix is well-visualized and normal. Peritoneum: There is no intraperitoneal free air or abdominal ascites. There is a small fat-containing umbilical hernia. Lymphadenopathy: None. Pelvic viscera: The bladder wall appears circumferentially thickened. The uterus and adnexa are normal as imaged. Skeletal structures: The skeletal structures are osteopenic. There is moderate lumbosacral spondylosis. Bilateral pars defects at L5 with 9 mm anterolisthesis and advanced disc space narrowing at L5-S1. No lytic or blastic lesions are seen. IMPRESSION: 1. Moderate sigmoid diverticulosis with evidence of acute sigmoid diverticulitis. 2. There is a 2.4 x 1.4 cm focus of phlegmonous change/developing abscess immediately adjacent to the sigmoid colon. 3. No intraperitoneal free air is identified. 4. The bladder wall appears circumferentially thickened. Correlate with clinical findings and urinalysis. 5. Additional findings as above. Resident Activity Tracking Resident Involvement: Resident Care Provided Care Provided: Adult [facility]
[2021-05-15] MEDS: FLUTICASONE PROPIONATE NA SPR 16 GM BTL SCH ×2 (07:46→20:55)
[2021-05-15] MEDS: PANTOprazole 40 MG TAB PO PRN (07:47)
[2021-05-15] MEDS: ATORVASTATIN 20 MG TAB PO SCH (07:47)
[2021-05-15] MEDS: ASPIRIN 81 MG ECTAB PO SCH (07:47)
[2021-05-15 08:47] LABS: BUN Creatinine Ratio 11.2 (10-20); Calcium 9.8 mg/dl (8.5-10.1); Creatinine Clr Calc Pharmacy 44.7 ml/min; Est GFR (African American) 72.5 ml/min; Est GFR (Non-African American) 62.5 ml/min
--- NOTE | 2021-05-15 09:11 | Gastrointestinal Consultation ---
Date of Consultation May 15, 2021 Assessment & Plan (1) Abscess of sigmoid colon due to diverticulitis: -Continue IV Zosyn at present -Continue liquid diet -Continue to monitor for clinical improvement Supervising Physician Co-Signing Physician Notes Agree with PRETTY Bowen as above Abd: Soft, NT, ND, +BS Continue current therapy and supportive care History of Present Illness Reason for Consultation: Diverticulitis with abscess Attending Physician: Fabiola Martinez MD History of Present Illness Patient is a 75 year-old female with a PMH of GERD & diverticulitis who presented to our outpatient clinic on 05/13/21 to discuss her history of GERD & diverticulitis. At the time of the visit, patient reported that she had no abdominal pain. She notes that she had a hospitalization for complicated diverticulitis in the early 1999s [place] She notes that since that time, she feels that every few years she develops an episode of diverticulitis. She noted to me that she would self-treat by going to a liquid diet. Occasionally she would self-treat with antibiotic therapy. She has not had imaging studies for these episodes. She noted that she takes Benefiber daily. Of note, patient had her most recent colonoscopy in 2019 and unfortunately this had to be aborted due to anatomical restrictions. While she was asymptomatic the day of her office visit, she promptly called the next morning to inform our office staff that overnight she developed LLQ abdominal pain. A CT scan was obtained that indicated acute sigmoid diverticulitis with abscess/phlegmon formation. She was advised that hospi talization was likely warranted for IV antibiotic therapy. WBC count at present is within normal limits. She is mildly anemic. H/H 11.4/35.0. She is currently managed on IV Zosyn with improvement in her pain. She has no emergent surgical needs. She is tolerating a clear liquid diet well. Allergies Allergy/AdvReac Type Severity Reaction Status Date / Time No Known Drug Allergies Allergy Verified 05/13/21 14:32 Home Medications Medication Instructions Recorded Confirmed Type aspirin 81 mg tablet,delayed 81 mg PO QAM 10/20/18 05/13/21 History release butterbur root extract 50 mg 50 mg PO BID 04/19/19 05/13/21 History capsule (Petadolex) famotidine 20 mg tablet 20 mg PO BID 08/15/19 05/13/21 History fluticasone furoate 27.5 1 sprays INTNAS BID #5.9 ml 09/04/19 05/13/21 Rx mcg/actuation nasal spray,suspension acetaminophen 325 mg capsule 325 mg PO QID PRN 01/25/20 05/13/21 History (Tylenol) ishrlcw-eeivfbkofjtmj-pgioawho 250 1 tab PO Q6H PRN 01/25/20 05/13/21 History mg-250 mg-65 mg tablet (Excedrin Migraine) pseudoephedrine HCl 30 mg tablet 30 mg PO Q6H PRN 01/25/20 05/13/21 History (Sudafed) atorvastatin 20 mg tablet (Lipitor) 20 mg PO QAM #90 tab 08/01/20 05/13/21 Rx levothyroxine 112 mcg tablet 112 mcg PO QAM #90 tab 11/06/20 05/13/21 Rx (Synthroid) vit A 300 mcg-C 200 mg-E 27 1 tab PO DAILY #30 tab 11/25/20 05/13/21 Rx oa-ynhebvrq-qbtrwl-lutein tablet (Eye Multivitamin With Lutein) mecobalamin (vitamin B12) 1,000 1,000 mcg PO DAILY #30 tab 11/26/20 05/13/21 Rx mcg chewable tablet cholecalciferol (vitamin D3) 50 100 mcg PO DAILY #30 cap 04/03/21 05/13/21 Rx mcg (2,000 unit) capsule omeprazole 20 mg capsule,delayed 20 mg PO DAILY PRN #30 cap 05/05/21 05/13/21 Rx release wheat dextrin 3 gram/4 gram oral 1.5 g PO BID 05/05/21 05/13/21 History powder (Benefiber Sugar Free (dextrin)) rizatriptan 10 mg tablet (Maxalt) See Rx Instructions PO .COMPLEX 05/13/21 Rx #10 tab Patient History Medical History Diverticulitis Dry eye syndrome RT EYE Eustachian tube dysfunction History of diverticulitis Hyperlipidemia Hypertension never on medication previously elevated numbers but in generally within normal limits Hypothyroidism Migraine Osteoarthritis Surgical History H/O hand surgery 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) History of cataract surgery LEFT History of colonoscopy History of esophagogastroduodenoscopy (EGD) Hx of wisdom tooth extraction Family History Father Cardiac disorder Myocardial infarction Hypertension Uncle Lung disease Family history of diabetes mellitus Other Family history non-contributory Denies family history of Colon cancer Ovarian cancer Prostate cancer Breast cancer Social History Smoking Status: Former smoker Tobacco Type: Cigarettes packs per day: 0.5; Years Smoked: 10; Second Hand Exposure: No; Do You Dip or Chew Tobacco: No; Tobacco Cessation Education Requested by Patient: No Hx Alcohol Use: Yes Alcohol type: wine Hx Substance Use: No Preferred Language: Tuvaluan Communication Ability: Effective Visual Impairment: No Limitations Hearing Ability: Use of Hearing Aid Mechanic Helper Required: No Beliefs That Will Affect Care: None marital status: Current Living Situation: Spouse current occupational status: retired Other Information That Helps Us Care for You: No Feels Safe at Home: Yes Safety Concerns: Feels Safe At This Time Childhood Exposure to Second-Hand Smoke: Yes Dental Care, Regularly: Yes Physical Activity Frequency: 5-6 Times per Week Seatbelt Use: always Sunscreen Use: Yes Assistive Devices: Glasses and Hearing Aid - Bilateral Review of Systems Constitutional: no fever and no chills Respiratory: no cough and no dyspnea Cardiovascular: no chest pain Gastrointestinal: + abdominal pain (improved); no change in bowel habits, no constipation, no diarrhea/loose stools and no constant urge to pass stools moving her bowels Physical Exam Constitutional: WD/WN, vitals as above Respiratory: normal respiratory effort Cardiovascular: Rate/Rhythm: regular rate and regular rhythm Gastrointestinal (Abdomen): Inspection/Auscultation: abdomen normal to inspection Percussion/Palpation: + abdomen tender and abdomen soft Musculoskeletal: Head/Neck/Chest: normocephalic Psychiatric: Orientation: alert and oriented x 3 Results & Data ([facility]) Vital Signs (Past 12 Hours) Vital Signs Temp Pulse Resp BP Pulse Ox 05/15/21 07:58 36.2 C L 47 L 14 123/77 96 05/14/21 22:28 37.2 C 80 16 125/76 95 PG Care Time/CCT Total # of Minutes Spent Total Time Spent with Patient: Total time spent is greater than 50% in coordination of care (as documented) at patient's floor/unit and/or counseling patient: Coding Level of Care Code 28790 Office/OBS Consult Lvl 4 Diagnoses Abscess of sigmoid colon due to diverticulitis K57.20
[2021-05-15] MEDS ORDERED: ACETAMINOPHEN 500 MG TAB PO PRN (09:53)
[2021-05-15] MEDS: RIZATRIPTAN 10 MG PO PRN (17:17)
--- NOTE | 2021-05-15 18:18 | Electrocardiogram Report ---
Test Reason : Blood Pressure : / mmHG Vent. Rate : 052 BPM Atrial Rate : 052 BPM P-R Int : 162 ms QRS Dur : 100 ms QT Int : 440 ms P-R-T Axes : 029 -13 082 degrees QTc Int : 409 ms Sinus bradycardia Left ventricular hypertrophy with repolarization abnormality Abnormal ECG When compared with ECG of 20-OCT-2018 13:00, No significant change was found Confirmed by Reginaldo Martin ([id number]) on 05/15/2021 6:18:23 PM Referred By: ED Confirmed By:Reginaldo Martin
--- NOTE | 2021-05-15 19:35 | Billing Data ---
Date of Service May 15, 2021 Coding Level of Care Code 41798 Initial Inpt Care Lvl 3
[2021-05-15] MEDS: HEPARIN SOD 5,000 UNIT/0.5 ML VIAL SQ SCH (20:54)
[2021-05-16] MEDS: PIPERACILLIN/TAZOBACTAM 3.375 GM in DEXTROSE 5% 100 ML IV SCH ×3 (01:58→17:44)
--- NOTE | 2021-05-16 05:16 | Surgery Progress Note ---
Date of Service May 16, 2021 Assessment & Plan (1) Abscess of sigmoid colon due to diverticulitis: Plan: Patient has been admitted on the hospitalist service. Recommending proceeding as follows: Continue analgesics Continue antiemetics Continue antibiotics in the form of Zosyn Continue clear liquids with consideration of diet advancement once further clinical improvement is noted Check a.m. labs when available Admission and Anticipated Discharge Date Admission Date: May 14, 2021 Supervising Physician Co-Signing Physician Notes Dr. Rankin-patient appears to be doing somewhat better without significant pain. She is walking in the hallway I would continue her on clear liquids today and continue her IV antibiotics-May advance her diet tomorrow Would likely keep her on IV antibiotics till Tuesday and then possibly discharge home Subjective Patient is resting comfortably in bed. She denies any fevers, shakes, chills. She denies any shortness of breath. She has noted considerable improvement in her abdominal pain since admission. She denies any nausea or vomiting. She notes she is passing flatus and having bowel movements. She is tolerating clear liquids. Physical Exam Gastrointestinal (Abdomen): Bowel sounds are present. Abdomen is soft, nondistended, and nontender to palpation. Results & Data ([facility]) Vital Signs (Past 12 Hours) Vital Signs Temp Pulse Resp BP Pulse Ox 05/15/21 22:30 36.8 C 45 L 16 120/73 96 PG Care Time/CCT Total # of Minutes Spent Total Time Spent with Patient: Total time spent is greater than 50% in coordination of care (as documented) at patient's floor/unit and/or counseling patient: Coding Level of Care Code 24174 Subseq Hosp Care Lvl 1 Diagnoses Abscess of sigmoid colon due to diverticulitis K57.20
[2021-05-16 05:56] LABS: Basophils # (auto) 0.05 K/uL (0-0.2); Basophils % (auto) 0.7 %; Eosinophils # (auto) 0.43 K/uL (0-0.5); Hematocrit (blood only) 34.8 % (37-47); Hemoglobin 11.3 g/dL (12.0-16.0); Immature Granulocytes # (auto) 0.01 K/uL (0.00-0.02); Immature Granulocytes % (auto) 0.1 %; Lymphocytes # (auto) 1.49 K/uL (1.2-3.4); Lymphocytes % (auto) 20.9 %; Mean Corpuscular Hemoglobin 29.2 pg (25-34); Mean Corpuscular Hgb Conc 32.5 g/dL (32-36); Mean Corpuscular Volume 89.9 fL (80-100); Mean Platelet Volume 9.7 fL (7.4-10.4); Monocytes # (auto) 0.66 K/uL (0.11-0.59); Monocytes % (auto) 9.2 %; Neutrophils % (auto) 63.1 %; Platelet Count 308 K/uL (130-400); RDW Coefficient of Variation 13.5 % (11.5-14.5); RDW Standard Deviation 44.8 fL (36.4-46.3); Red Blood Count 3.87 M/uL (4.2-5.4); White Blood Count 7.14 K/uL (4.8-10.8)
[2021-05-16] MEDS: LEVOTHYROXINE SODIUM 112 MCG TABLET PO SCH (05:59)
[2021-05-16 06:35] LABS: Albumin Level 2.7 gm/dl (3.4-5.0); BUN Creatinine Ratio 7.4 (10-20); Calcium 9.8 mg/dl (8.5-10.1); Creatinine Clr Calc Pharmacy 40.6 ml/min; Est GFR (African American) 64.6 ml/min; Est GFR (Non-African American) 55.7 ml/min; Potassium 3.7 mmol/L (3.5-5.1)
[2021-05-16 06:44] LABS: Albumin Globulin Ratio 0.6 (0.9-2); Bilirubin,Total 0.4 mg/dl (0.2-1); Globulin 4.3 gm/dl (2.5-4.0)
[2021-05-16] MEDS: ATORVASTATIN 20 MG TAB PO SCH (10:20)
[2021-05-16] MEDS: FAMOTIDINE 20 MG TAB PO SCH ×2 (10:20→19:22)
[2021-05-16] MEDS: ASPIRIN 81 MG ECTAB PO SCH (10:20)
[2021-05-16] MEDS: PANTOprazole 40 MG TAB PO PRN (10:20)
[2021-05-16] MEDS: HEPARIN SOD 5,000 UNIT/0.5 ML VIAL SQ SCH ×2 (10:21→19:22)
[2021-05-16] MEDS: FLUTICASONE PROPIONATE NA SPR 16 GM BTL SCH ×2 (10:22→19:22)
--- NOTE | 2021-05-16 10:27 | Hospitalist Progress Note ---
Date of Service May 16, 2021 Assessment & Plan (1) Abscess of sigmoid colon due to diverticulitis: Plan: 75 yo relatively healthy F w/ PMHx of recurrent diverticulitis flares, bradycardia, gerd, hypothyroidism, HLD admitted for management of sigmoid diverticulitis with abscess. Diverticulitis of sigmoid colon with developing phlegmon / possible abscess - Moderate sigmoid diverticulosis with evidence of acute sigmoid diverticulitis. - 2.4 x 1.4 cm focus of phlegmonous change/developing abscess immediately adjacent to the sigmoid colon. - Surgery following - Continue clear liquid diet. Hopeful to advance diet tomorrow pending neetu nued clinical improvement. - Continue Zosyn over the next 48 hours - anticipate d/c home on tuesday - Has remained afebrile, no leukocytosis - Toradol, morphine for prn pain control - prn zofran for nausea; patient has been w/o nausea Chronic Conditions Migraines: continue home Maxalt GERD: continue daily PPI, famotidine Hypothyroidism: continue daily levothyroxine HLD: continue daily ASA and statin Allergies: BID flonase DVT ppx: scds, sq heparin q12 FEN/GI: clear liquid diet, ppi, h2 noam Bowel regimen: NA Code Status: DNR/DNI Dispo: Med/Surg (2) GERD without esophagitis: (3) Hypothyroidism: (4) Hyperlipidemia: Admission and Anticipated Discharge Date Admission Date: May 14, 2021 Supervising Physician Co-Signing Physician Notes Resident Physician Supervision Note: I independently interviewed and examined the patient and verified the rodriguez history and physical, reviewed labs and image studies and agree with resident Dr. Ritter findings and care plan. Subjective Patient seen and evaluated at bedside this morning. Reports that abdominal pain is improved from initial presentation to the hospital. Rates current pain at a 1/10. She is tolerating current clear liquid diet. Denies nausea or vomiting. Notes that she had 6-7 bowel movements yesterday. Does reports some mild diffuse back pain and neck pain which she attributes to laying in the hospital bed. She is asking if she is able to walk around the [place] and sit in chair at bedside. Patient with no other questions or concerns this morning. Review of Systems Review of Systems: All systems reviewed & are unremarkable except as noted in HPI & below Physical Exam Physical Exam: GENERAL: Very pleasant elderly female in no acute distress. Well developed and well nourished. Vital signs reviewed as above. EYES: EOMI. Anicteric sclerae. HENT: Moist mucous membranes. RESPIRATORY: Clear to auscultation bilaterally. No wheezing, rales, or rhonchi. CARDIOVASCULAR: Regular rate and rhythm. No murmurs. ABDOMEN: Soft, non-tender and non-distended. Normal bowel sounds. EXTREMITIES: No edema. Non-tender. SKIN: Warm, dry. No rashes or lesions. NEUROLOGIC: A/O x3. No focal neurological deficits. PSYCHIATRIC: Cooperative. Appropriate mood and affect. Results & Data Results & Data ([facility]) Vital Signs (Past 12 Hours) Vital Signs Temp Pulse Resp BP Pulse Ox 05/16/21 08:09 36.7 C 44 L 16 121/77 95 05/15/21 22:30 36.8 C 45 L 16 120/73 96 Laboratory Results 05/16/21 05/16/21 Range/Units 05:45 05:45 WBC 7.14 (4.8-10.8) K/uL RBC 3.87 L (4.2-5.4) M/uL Hgb 11.3 L (12.0-16.0) g/dL Hct 34.8 L (37-47) % MCV 89.9 (80-100) fL MCH 29.2 (25-34) pg MCHC 32.5 (32-36) g/dL RDW Std Deviation 44.8 (36.4-46.3) fL RDW Coeff of Abel 13.5 (11.5-14.5) % Plt Count 308 (130-400) K/uL MPV 9.7 (7.4-10.4) fL Immature Gran % (Auto) 0.1 % Neut % (Auto) 63.1 % Lymph % (Auto) 20.9 % [place] % (Auto) 9.2 % Eos % (Auto) 6.0 % Baso % (Auto) 0.7 % Neut # (Auto) 4.50 (1.4-6.5) K/uL Lymph # (Auto) 1.49 (1.2-3.4) K/uL [place] # (Auto) 0.66 H (0.11-0.59) K/uL Eos # (Auto) 0.43 (0-0.5) K/uL Baso # (Auto) 0.05 (0-0.2) K/uL Immature Gran # (Auto) 0.01 (0.00-0.02) K/uL Sodium 137 (136-145) mmol/L Potassium 3.7 (3.5-5.1) mmol/L Chloride 105 (98-107) mmol/L Carbon Dioxide 29 (21-32) mmol/L Anion Gap 3.0 (3-11) BUN 7 (7-18) mg/dl Creatinine 0.99 (0.6-1.2) mg/dl Est Cr Clr Drug Dosing 40.6 ml/min Est GFR ( Amer) 64.6 ml/min Est GFR (Non-Af Amer) 55.7 ml/min BUN/Creatinine Ratio 7.4 L (10-20) Glucose 95 (70-99) mg/dl Calcium 9.8 (8.5-10.1) mg/dl Total Bilirubin 0.4 (0.2-1) mg/dl AST 16 (15-37) U/L ALT 20 (12-78) U/L Alkaline Phosphatase 91 (45-117) U/L Total Protein 7.0 (6.4-8.2) gm/dl Albumin 2.7 L (3.4-5.0) gm/dl Globulin 4.3 H (2.5-4.0) gm/dl Albumin/Globulin Ratio 0.6 L (0.9-2) Resident Activity Tracking Resident Involvement: Resident Care Provided Care Provided: Adult Hospital Medicine
[2021-05-16] MEDS: ACETAMINOPHEN 500 MG TAB PO PRN (10:33)
[2021-05-16] MEDS: RIZATRIPTAN 10 MG PO PRN (14:35)
[2021-05-17] MEDS: PIPERACILLIN/TAZOBACTAM 3.375 GM in DEXTROSE 5% 100 ML IV SCH ×3 (02:01→17:13)
--- NOTE | 2021-05-17 04:59 | Surgery Progress Note ---
Date of Service May 17, 2021 Assessment & Plan (1) Abscess of sigmoid colon due to diverticulitis: Plan: Patient has been admitted on the hospitalist service. Recommending proceeding as follows: Continue analgesics Continue antiemetics Continue antibiotics in the form of Zosyn Maintain the patient on clear liquids for the present time; will consider advancing to full liquids later today Check a.m. labs when available Admission and Anticipated Discharge Date Admission Date: May 14, 2021 Supervising Physician Co-Signing Physician Notes Patient is doing very well Currently on clear liquids-we will advance to full liquids today Continue her IV antibiotics Subjective Patient notes she is doing well. Over the past 24 hours she has not had any nausea vomiting. She has had several loose bowel movements. She notes that she has minimal pain in her abdomen. She states she is tolerating clear liquids. Physical Exam Gastrointestinal (Abdomen): Abdomen is soft and nondistended. Bowel sounds are present. There is minimal to no pain with palpation. Results & Data ([facility]) Vital Signs (Past 12 Hours) Vital Signs Temp Pulse Resp BP Pulse Ox 05/16/21 22:52 36.6 C 47 L 12 120/69 95 PG Care Time/CCT Total # of Minutes Spent Total Time Spent with Patient: Total time spent is greater than 50% in coordination of care (as documented) at patient's floor/unit and/or counseling patient: Coding Level of Care Code 78527 Subseq Hosp Care Lvl 1 Diagnoses Abscess of sigmoid colon due to diverticulitis K57.20
[2021-05-17] MEDS: LEVOTHYROXINE SODIUM 112 MCG TABLET PO SCH (05:46)
[2021-05-17 08:08] LABS: Basophils # (auto) 0.06 K/uL (0-0.2); Basophils % (auto) 1.1 %; Hematocrit (blood only) 35.1 % (37-47); Hemoglobin 11.6 g/dL (12.0-16.0); Immature Granulocytes # (auto) 0.01 K/uL (0.00-0.02); Immature Granulocytes % (auto) 0.2 %; Lymphocytes # (auto) 1.47 K/uL (1.2-3.4); Mean Corpuscular Hemoglobin 29.7 pg (25-34); Mean Corpuscular Volume 89.8 fL (80-100); Mean Platelet Volume 10.2 fL (7.4-10.4); Monocytes # (auto) 0.67 K/uL (0.11-0.59); Monocytes % (auto) 12.3 %; Neutrophils # (auto) 2.63 K/uL (1.4-6.5); Neutrophils % (auto) 48.4 %; Platelet Count 342 K/uL (130-400); RDW Coefficient of Variation 13.5 % (11.5-14.5); RDW Standard Deviation 44.5 fL (36.4-46.3); Red Blood Count 3.91 M/uL (4.2-5.4); White Blood Count 5.44 K/uL (4.8-10.8)
[2021-05-17 08:38] LABS: BUN Creatinine Ratio 6.5 (10-20); Calcium 9.8 mg/dl (8.5-10.1); Est GFR (African American) 65.4 ml/min; Est GFR (Non-African American) 56.4 ml/min; Potassium 4.2 mmol/L (3.5-5.1)
[2021-05-17] MEDS: ASPIRIN 81 MG ECTAB PO SCH (08:55)
[2021-05-17] MEDS: HEPARIN SOD 5,000 UNIT/0.5 ML VIAL SQ SCH ×2 (08:55→20:18)
[2021-05-17] MEDS: FAMOTIDINE 20 MG TAB PO SCH ×2 (08:55→20:18)
[2021-05-17] MEDS: ATORVASTATIN 20 MG TAB PO SCH (08:55)
[2021-05-17] MEDS: FLUTICASONE PROPIONATE NA SPR 16 GM BTL SCH ×2 (08:55→20:18)
--- NOTE | 2021-05-17 11:32 | Hospitalist Progress Note ---
Date of Service May 17, 2021 Assessment & Plan (1) Abscess of sigmoid colon due to diverticulitis: Plan: 75 yo relatively healthy F w/ PMHx of recurrent diverticulitis flares, bradycardia, gerd, hypothyroidism, HLD admitted for management of sigmoid diverticulitis with abscess. Diverticulitis of sigmoid colon with developing phlegmon / possible abscess - Moderate sigmoid diverticulosis with evidence of acute sigmoid diverticulitis. - 2.4 x 1.4 cm focus of phlegmonous change/developing abscess immediately adjacent to the sigmoid colon. - Surgery following - Was on clear liquid diet --> advanced to full liquid diet. - Continue Zosyn until tomorrow - anticipate d/c home tomorrow - Has remained afebrile, no leukocytosis - Toradol, morphine for prn pain control - prn zofran for nausea; patient has been w/o nausea - blood cultures negative after 48 hours Chronic Conditions Migraines: continue home Maxalt GERD: continue daily PPI, famotidine Hypothyroidism: continue daily levothyroxine HLD: continue daily ASA and statin Allergies: BID flonase DVT ppx: scds, sq heparin q12 FEN/GI: full liquid diet, ppi, h2 noam Code Status: DNR/DNI Dispo: Med/Surg (2) GERD without esophagitis: (3) Hypothyroidism: (4) Hyperlipidemia: Admission and Anticipated Discharge Date Admission Date: May 14, 2021 Supervising Physician Co-Signing Physician Notes Resident Physician Supervision Note: I independently interviewed and examined the patient and verified the rodriguez history and physical, reviewed labs and image studies and agree with resident Dr. Ritter findings and care plan. Subjective Patient seen and evaluated at bedside this morning. She was sitting in chair. States that she is overall feeling "much better." Has been tolerating clear liquid diet. No abdominal pain, nausea, or vomiting. Reports several loose stool outputs but states that it's "not quite diarrhea" and "not completely liquid" at this point. Patient does note a migraine headache, which is chronic for her, and she took Maxalt w/ benefit. No other concerns or questions this morning. Review of Systems Review of Systems: See HPI Physical Exam Physical Exam: GENERAL: Very pleasant elderly female in no acute distress. Sitting in chair at bedside. Well developed and well nourished. Vital signs reviewed as above. EYES: EOMI. Anicteric sclerae. HENT: Moist mucous membranes. RESPIRATORY: Clear to auscultation bilaterally. No wheezing, rales, or rhonchi. CARDIOVASCULAR: Regular rate and rhythm. No murmurs. ABDOMEN: Soft, non-tender and non-distended. Normal bowel sounds. EXTREMITIES: No edema. Non-tender. SKIN: Warm, dry. No rashes or lesions. NEUROLOGIC: A/O x3. No focal neurological deficits. PSYCHIATRIC: Cooperative. Appropriate mood and affect. Results & Data Results & Data ([facility]) Vital Signs (Past 12 Hours) Vital Signs Temp Pulse Resp BP Pulse Ox 05/17/21 07:55 36.5 C 62 18 99/69 L 99 Laboratory Results 05/17/21 05/17/21 Range/Units 07:08 07:08 WBC 5.44 (4.8-10.8) K/uL RBC 3.91 L (4.2-5.4) M/uL Hgb 11.6 L (12.0-16.0) g/dL Hct 35.1 L (37-47) % MCV 89.8 (80-100) fL MCH 29.7 (25-34) pg MCHC 33.0 (32-36) g/dL RDW Std Deviation 44.5 (36.4-46.3) fL RDW Coeff of Abel 13.5 (11.5-14.5) % Plt Count 342 (130-400) K/uL MPV 10.2 (7.4-10.4) fL Immature Gran % (Auto) 0.2 % Neut % (Auto) 48.4 % Lymph % (Auto) 27.0 % [place] % (Auto) 12.3 % Eos % (Auto) 11.0 % Baso % (Auto) 1.1 % Neut # (Auto) 2.63 (1.4-6.5) K/uL Lymph # (Auto) 1.47 (1.2-3.4) K/uL [place] # (Auto) 0.67 H (0.11-0.59) K/uL Eos # (Auto) 0.60 H (0-0.5) K/uL Baso # (Auto) 0.06 (0-0.2) K/uL Immature Gran # (Auto) 0.01 (0.00-0.02) K/uL Sodium 141 (136-145) mmol/L Potassium 4.2 (3.5-5.1) mmol/L Chloride 108 H (98-107) mmol/L Carbon Dioxide 27 (21-32) mmol/L Anion Gap 6.0 (3-11) BUN 6 L (7-18) mg/dl Creatinine 0.98 (0.6-1.2) mg/dl Est Cr Clr Drug Dosing 41.0 ml/min Est GFR ( Amer) 65.4 ml/min Est GFR (Non-Af Amer) 56.4 ml/min BUN/Creatinine Ratio 6.5 L (10-20) Glucose 83 (70-99) mg/dl Calcium 9.8 (8.5-10.1) mg/dl Resident Activity Tracking Resident Involvement: Resident Care Provided Care Provided: Adult Hospital Medicine
[2021-05-17] MEDS: RIZATRIPTAN 10 MG PO PRN (11:46)
[2021-05-18] MEDS: PIPERACILLIN/TAZOBACTAM 3.375 GM in DEXTROSE 5% 100 ML IV SCH ×2 (02:02→09:58)
[2021-05-18] MEDS: LEVOTHYROXINE SODIUM 112 MCG TABLET PO SCH (06:31)
--- NOTE | 2021-05-18 06:43 | Hospitalist Progress Note ---
Date of Service May 18, 2021 Assessment & Plan (1) Abscess of sigmoid colon due to diverticulitis: Plan: 75 yo relatively healthy F w/ PMHx of recurrent diverticulitis flares, bradycardia, gerd, hypothyroidism, HLD admitted for management of sigmoid diverticulitis with abscess. Diverticulitis of sigmoid colon with developing phlegmon / possible abscess - Moderate sigmoid diverticulosis with evidence of acute sigmoid diverticulitis. - 2.4 x 1.4 cm focus of phlegmonous change/developing abscess immediately adjacent to the sigmoid colon. - Surgery following - Was on clear liquid diet --> advanced to full liquid diet. - Continue Zosyn until tomorrow - anticipate d/c home tomorrow - Has remained afebrile, no leukocytosis - Toradol, morphine for prn pain control - prn zofran for nausea; patient has been w/o nausea - blood cultures negative after 48 hours Chronic Conditions Migraines: continue home Maxalt GERD: continue daily PPI, famotidine Hypothyroidism: continue daily levothyroxine HLD: continue daily ASA and statin Allergies: BID flonase DVT ppx: scds, sq heparin q12 FEN/GI: full liquid diet, ppi, h2 noam Code Status: DNR/DNI Dispo: Med/Surg (2) GERD without esophagitis: (3) Hypothyroidism: (4) Hyperlipidemia: Admission and Anticipated Discharge Date Admission Date: May 14, 2021 Subjective Doing well. No CP/SOB, f/c, N/V. She is still having diarrhea / loose stools. SHe had 5 episodes today. 1 today so far. Review of Systems Review of Systems: All systems reviewed & are unremarkable except as noted in HPI & below Physical Exam Physical Exam: General: Grossly A&O. NAD. Cooperative. HEENT: Atraumatic, normocephalic. EOMI Pulm: CTAB. -wheezes, -rales, -rhonchi. No respiratory distress. Cardiac: RRR, -mrg. Abdominal: Mild L inguinal area TTP. nondistended, soft. No rebound, guarding, or rigidity. Results & Data Results & Data ([facility]) Vital Signs (Past 12 Hours) Vital Signs Juan in 40s. Other vitals appropriate. afeb. RA. Temp Pulse Resp BP Pulse Ox 05/17/21 22:20 36.7 C 46 L 16 118/71 96 Laboratory Results no leukocytosis. Hb stable. bmp pending 05/14 NG 48 hrs. Resident Activity Tracking Resident Involvement: Resident Care Provided Care Provided: Adult Hospital Medicine
[2021-05-18 09:28] LABS: Basophils # (auto) 0.04 K/uL (0-0.2); Basophils % (auto) 0.7 %; Eosinophils # (auto) 0.43 K/uL (0-0.5); Eosinophils % (auto) 7.6 %; Hematocrit (blood only) 35.8 % (37-47); Hemoglobin 11.8 g/dL (12.0-16.0); Lymphocytes # (auto) 1.54 K/uL (1.2-3.4); Lymphocytes % (auto) 27.2 %; Mean Corpuscular Hemoglobin 29.6 pg (25-34); Mean Corpuscular Volume 89.7 fL (80-100); Mean Platelet Volume 10.6 fL (7.4-10.4); Monocytes # (auto) 0.54 K/uL (0.11-0.59); Monocytes % (auto) 9.5 %; Neutrophils # (auto) 3.11 K/uL (1.4-6.5); Platelet Count 367 K/uL (130-400); RDW Coefficient of Variation 13.5 % (11.5-14.5); RDW Standard Deviation 44.8 fL (36.4-46.3); Red Blood Count 3.99 M/uL (4.2-5.4); White Blood Count 5.66 K/uL (4.8-10.8)
[2021-05-18] MEDS: ASPIRIN 81 MG ECTAB PO SCH (09:55)
[2021-05-18] MEDS: ATORVASTATIN 20 MG TAB PO SCH (09:55)
[2021-05-18] MEDS: HEPARIN SOD 5,000 UNIT/0.5 ML VIAL SQ SCH (09:56)
[2021-05-18] MEDS: FAMOTIDINE 20 MG TAB PO SCH (09:56)
[2021-05-18] MEDS: FLUTICASONE PROPIONATE NA SPR 16 GM BTL SCH (09:56)
[2021-05-18 10:01] LABS: BUN Creatinine Ratio 6.5 (10-20); Calcium 10.1 mg/dl (8.5-10.1); Creatinine Clr Calc Pharmacy 42.3 ml/min; Est GFR (African American) 67.9 ml/min; Est GFR (Non-African American) 58.6 ml/min; Potassium 3.7 mmol/L (3.5-5.1)
[2021-05-18] MEDS: ACETAMINOPHEN 500 MG TAB PO PRN (10:54)
--- NOTE | 2021-05-18 10:57 | Discharge Summary ---
Date of Service May 18, 2021 Admission HPI Per Admitting Provider Kathryn 75 yo F with PMH diverticulitis, GERD, hypothyroidism, osteoporosis, HLD who presents to the ER for 1 week of ongoing abdominal pain. She states the symptoms started on May 08, at which time she called doctor's office to get antibiotics in case she got worse over the weekend. She was prescribed metronidazole and ciprofloxacin. She was febrile to 101F the next day but did not take the antibiotics because they have made her nauseous and have diarrhea in the past. She switched herself to a liquid diet and was managing the abdominal pain with that. This was improving until yesterday 05/13 when she went to a low residue diet and had worsening pain. She describes the pain as coming and going, sharp and dull, with some radiation to her back. No nausea/vomiting. Fever x1, no chills. Admission Exam Per Admitting Provider Constitutional: in no apparent distress, sitting comfortably in bed. Eyes: EOMI, pupils equal and reactive bilaterally, no scleral icterus Cardiac: RRR, no murmurs, gallops or rubs. Normal S1, S2 Pulm: CTA BL, no wheezes, rhonchi, crackles or rubs, moving air well throughout both lungs Abd: soft, TTP in LLQ, nondistended, diminished bowel sounds, no rebound or guarding Extremities: 2+ peripheral pulses, no edema Neuro: no focal deficits, moving all 4 limbs, A&Ox3 Principal Diagnosis acute diverticulitis Discharge Exam General: Grossly A&O. NAD. Cooperative. HEENT: Atraumatic, normocephalic. EOMI Pulm: CTAB. -wheezes, -rales, -rhonchi. No respiratory distress. Cardiac: RRR, -mrg. Abdominal: Mild L inguinal area TTP. nondistended, soft. No rebound, guarding, or rigidity. Discharge Data Allergies Allergy/AdvReac Type Severity Reaction Status Date / Time No Known Drug Allergies Allergy Verified 05/13/21 14:32 Consultations 05/14/21 19:34 ED Decision to Admit Stat 05/14/21 21:31 Consult General Surgery Routine Ordered Studies 05/18/21 08:37 05/18/21 08:37 05/14/21 ct abd/pelv w/ IV contrast (outpatient imaging) CLINICAL HISTORY: Left lower quadrant abdominal pain. COMPARISON STUDY: No priors. TECHNIQUE: Following the IV administration of 95 cc of Optiray 320, CT scan of the abdomen and pelvis is performed from the lung bases to the proximal femora. Images are reviewed in the axial, sagittal, and coronal planes. IV contrast was administered without complication. Oral contrast was utilized. A dose lowering technique was utilized adhering to the principles of ALARA. CT DOSE: 479.43 mGycm FINDINGS: Lung bases: The heart is top normal in size noting trace pericardial effusion. There are coronary artery calcifications. The lung bases are clear noting bibasilar scarring/atelectasis. Liver: The contrast-enhanced liver is normal in size, contour, and attenuation. There is no intrahepatic biliary ductal dilatation. The hepatic veins and portal veins are patent. Gallbladder: Unremarkable. Spleen: Normal in size and attenuation. Pancreas: Unremarkable. Adrenal glands: Unremarkable. Kidneys: The contrast enhanced kidneys are normal in size and without hydronephr osis. The kidneys enhance symmetrically. Abdominal vasculature: The abdominal aorta is normal in course and caliber noting mild atherosclerotic calcification. Bowel: There is moderate sigmoid diverticulosis. There is wall thickening with pericolonic inflammation and fluid involving the sigmoid colon consistent with acute diverticulitis. There is a 2.4 x 1.4 cm focus of phlegmonous change/developing abscess adjacent to the sigmoid colon seen on image #[id number]. There is moderate colonic fecal retention. No bowel obstruction is seen. Enteric contrast reaches the distal small bowel. The appendix is well-visualized and normal. Peritoneum: There is no intraperitoneal free air or abdominal ascites. There is a small fat-containing umbilical hernia. Lymphadenopathy: None. Pelvic viscera: The bladder wall appears circumferentially thickened. The uterus and adnexa are normal as imaged. Skeletal structures: The skeletal structures are osteopenic. There is moderate lumbosacral spondylosis. Bilateral pars defects at L5 with 9 mm anterolisthesis and advanced disc space narrowing at L5-S1. No lytic or blastic lesions are seen. IMPRESSION: 1. Moderate sigmoid diverticulosis with evidence of acute sigmoid diverticulitis. 2. There is a 2.4 x 1.4 cm focus of phlegmonous change/developing abscess immediately adjacent to the sigmoid colon. 3. No intraperitoneal free air is identified. 4. The bladder wall appears circumferentially thickened. Correlate with clinical findings and urinalysis. 5. Additional findings as above. Hospital Course (1) Abscess of sigmoid colon due to diverticulitis: 75 yo F w/ PMHx of recurrent diverticulitis flares, bradycardia, gerd, hypothyroidism, HLD admitted for management of sigmoid diverticulitis with possible abscess. Diverticulitis of sigmoid colon with developing phlegmon / possible abscess - Moderate sigmoid diverticulosis with evidence of acute sigmoid diverticulitis. - 2.4 x 1.4 cm focus of phlegmonous change/developing abscess immediately adjacent to the sigmoid colon. - Has remained afebrile, no leukocytosis. Exam benign w/ mild LLQ TTP - 14 total days of antibiotics. Received 3.5 days of Zosyn. Will finish course w/ PO cipro 500 BID and flagyl 500 TID. Patient will use home supply - Diet advanced - 4-6 wks of low fiber diet, Benefiber temporarily held - gen surg and GI consulted while inpatient: surgical management not indicated at this time - prn zofran for nausea; patient has been w/o nausea - blood cultures negative after 48 hours Bradycardia, asymptomatic - Persistent bradycardia, including prolong periods of low-mid 40s. Most likely from conduction problems. Consider event monitor in outpatient setting Chronic Conditions Migraines: continue home Maxalt GERD: continue daily PPI, famotidine Hypothyroidism: continue daily levothyroxine HLD: daily baby ASA and statin. Per chart review, no obvious cardiovascular disease hx. Consider risk/benefit of baby ASA use. Allergies: flonase (2) GERD without esophagitis: (3) Hypothyroidism: (4) Hyperlipidemia: (5) Bradycardia: Total Time Total Time Spent Total Time Spent (In Minutes): <30 Discharge Plan Discharge Items Patient Disposition: Home - Self-Care Reason For Visit: DIVERVERTICULITIS Discharge Diagnosis: diverticulitis Activity: Per Instructions section Non-emergency contact: Primary Care Provider Call non-emergency contact if: you have any medication questions and you have a fever Follow-up/Referrals: Bridget Perez MD [Primary Care Provider] - 06/01/21 9:05 am (Harleen Cruz PA-C) Diet: Low Fiber Diet Comment: x 4-6 weeks Addtl Attending Provider Instructions: Hi Ms. Owusu, You were admitted to [facility] for medical treatment of diverticulitis (with inf lammatory tissue concerning for possible abscess) w/ antibiotics and clear liquid diet. Total antibiotic treatment course will be 14 days, including the IV antibiotics (Zosyn x3.5 days) you received while in the hospital. Take the first dose of the oral antibiotics cipro+Flagyl starting tonight, 05/18/21 evening. Then, take 10 more days of this, with the last dose the evening of 05/28/21. The cipro will be twice a day. The Flagyl (metronidazole) will be 3 times a day. You stated you will be using your existing home supply. Regarding your recurrent diverticulitis episodes, I recommend a low fiber diet for 4-6 weeks and not resuming the Benefiber until after this period. bradycardia, low heart rate in the low 40s: F/u w/ PCP who may consider an event monitor to check for rhythm problems. If you develop any new or worsening symptoms including fever, chills, sweats, chest pain, chest pressure, difficulty breathing, uncontrolled nausea/vomiting, rash, wheezing, passing out or nearly passing out, bleeding, black/bloody bowel movements, or other new or concerning symptoms please call your primary care physician, or call 911 for re-evaluation in the emergency department if you are very concerned. Pending Studies at Discharge: No Stand-Alone Forms: My [facility] [employer], Smoking Cessation Medications and DC Order Prescriptions: New ciprofloxacin HCl 500 mg tablet 500 mg PO BID Qty: 21 RF: 0 metronidazole 500 mg tablet 500 mg PO TID Qty: 31 RF: 0 Continued atorvastatin [Lipitor] 20 mg tablet 20 mg PO QAM Qty: 90 RF: 3 levothyroxine [Synthroid] 112 mcg tablet 112 mcg PO QAM Qty: 90 RF: 3 mecobalamin (vitamin B12) 1,000 mcg tablet,chewable 1,000 mcg PO DAILY Qty: 30 RF: 0 cholecalciferol (vitamin D3) 50 mcg (2,000 unit) capsule 100 mcg PO DAILY Qty: 30 RF: 0 rizatriptan [Maxalt] 10 mg tablet See Rx Instructions PO .COMPLEX Qty: 10 RF: 0 fluticasone furoate 27.5 mcg/actuation spray,suspension 1 sprays INTNAS BID Qty: 5.9 RF: 0 acetaminophen [Tylenol] 325 mg capsule 325 mg PO QID PRNRF: 0 Excedrin Migraine 250-250-65 mg tablet 1 tab PO Q6H PRNRF: 0 pseudoephedrine HCl [Sudafed] 30 mg tablet 30 mg PO Q6H PRNRF: 0 omeprazole 20 mg capsule,delayed release(DR/EC) 20 mg PO DAILY PRN (Reason: gerd) Qty: 30 RF: 2 Eye Multivitamin With Lutein 300 mcg-200 mg- 27 mg tablet 1 tab PO DAILY Qty: 30 RF: 0 aspirin 81 mg Tablet,Delayed Release (Dr/Ec) 81 mg PO QAM RF: 0 Petadolex 50 mg Capsule 50 mg PO BID RF: 0 famotidine 20 mg tablet 20 mg PO BID RF: 0 Discontinued Benefiber Sugar Free (dextrin) 3 gram/4 gram powder 1.5 g PO BID RF: 0 Discharge Orders: Discharge Order (Routine); Ordered 05/18/21 Ordered By: Lang Hudson/Other Patient Handouts: Low-Fiber Diet, Discharge Instructions for ... Admission Data Admit Date/Time: 05/14/21 20:30 Attending Provider: Johnny Lacy Admit Provider: Umm Ch Primary Care Provider: Bridget Perez V. Other Providers: Ritesh Garay ; David Alvarado ; Fabiola Martinez Other Interventions: Discharge Summary Assessment (RN) Last Done: 05/18/21 16:20 Supervising Physician Co-Signing Physician Notes I personally examined the patient and verified all rodriguez points of history and exam, discussed case, and agree with decision making with Dr Hua. Feeling better and would very much like to go home. Tolerated low fiber diet without any problems. Pain markedly improved. Vitals noted, in general she is awake and alert pleasant no distress. HEENT normocephalic atraumatic mucous membranes moist. Breathing unlabored no accessory muscle use good effort. Skin shows no rashes no pallor or icterus. Neuro without focal deficits. Abdomen soft nondistended minimal tenderness at worst no guarding rebound rigidity. Diverticulitis with abscessimproved on IV antibiotics, stable for home. Finish out 14 total days of antibioticsCipro/Flagyl. Otherwise as above. Resident Activity Tracking Resident Involvement: Resident Care Provided Care Provided: Adult Hospital Medicine
--- NOTE | 2021-05-18 18:32 | Billing Data ---
Date of Service May 18, 2021 Coding Level of Care Code D/C DAY MANAGEMENT <30 MINS
== END 2021-05-18 17:15 | disposition home or self-care (01) | DRG 392 ==
LOC: ED 14:04 → SUATTDRO 20:30 → 3N 20:30

== ENCOUNTER 2023-10-05 20:31 | Inpatient (IN) ==
--- NOTE | 2023-10-05 21:37 | Emergency Department Note ---
Impression & Plan Open fracture of distal end of left ulna, Fracture of left distal radius, Fall, Chronic anticoagulation ED Provider Note CHIEF COMPLAINT: Left wrist injury HISTORY OF PRESENTING ILLNESS: This [id number] 78-year-old female patient presents to the emergency department with her for evaluation of a left forearm/wrist injury. The patient states that she was standing on an exercise ball platform doing exercises and fell tonight as she stepped off. She states that it kind of threw her sideways and she tried to catch herself with her left arm on the carpeted floor. She heard a snap in the left arm as she fell. She denies hitting her head. She denies loss of consciousness. She is on Plavix. She denies any other injuries other than the left wrist and forearm. Denies neck or back pain. Denies chest pain, SOB, abdominal pain, nausea, or vomiting. Denies headache, dizziness, change in vision, nausea, vomiting, or change in personality. 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 She was also recently diagnosed with interstitial lung disease per patient. The patient thinks her tetanus shot is up-to-date as she is up-to-date with all of her other vaccines. REVIEW OF SYSTEMS: See HPI for pertinent positives and pertinent negatives. ALLERGIES: Amoxicillin MEDICATIONS: See below PAST MEDICAL HISTORY: See below PHYSICAL EXAM: VITALS: Vitals are noted on the nurse's note and reviewed by myself. GENERAL: No acute distress, non-diaphoretic. SKIN: The patient has a puncture wound to the ulnar aspect of the left distal forearm. There is surrounding edema and ecchymosis. There is bone felt near the area of the puncture wound, but bone is not protruding through the puncture wound. There is active bleeding from the puncture wound. No other obvious lacerations or abrasions noted. Capillary reflex less than 2 seconds. HEAD: Normocephalic. No scalp tenderness or step-offs felt. EYES: Pupils equal round and reactive to light and accommodation. Conjunctivae without injection, sclerae without icterus. Extraocular movements intact. NOSE: Patent without discharge. No sinus tenderness. No septal hematoma or bleeding. FACE: No facial bone tenderness. Full range of motion of the jaw without tenderness. MOUTH: Mucous membranes moist. Pharynx without erythema or exudate. Uvula midline. Airway patent. Tongue does not deviate. NECK: Supple without nuchal rigidity. Cervical spine is nontender. Full range of motion of the neck without tenderness. HEART: Regular rate and rhythm without murmurs gallops or rubs. LUNGS: Clear to auscultation bilaterally without wheezes, rales or rhonchi. No retractions or accessory muscle use. CHEST: No chest wall tenderness. ABDOMEN: Positive bowel sounds x 4. Normal tympanic percussion. Soft, nontender, without masses or organomegaly. No guarding or rebound tenderness. MUSCULOSKELETAL: No tenderness of the thoracic or lumbar spine. No tenderness with pelvic rocking. The patient has an obvious deformity of the left forearm/wrist. The patient is significantly tender to palpation over the left distal radius and ulna. Unable to move the left wrist. Slight movement of the fingers, but with increased pain in the wrist. No tenderness to palpation of the left hand or fingers. No tenderness to palpation of the left elbow, forearm, or shoulder. The patient states that her left third, fourth, and fifth fingers are starting to go numb, but she is still able to feel sensation on my exam. Radial pulse 2+. Full range of motion without tenderness to palpation in all remaining extremities. Normal gait. Peripheral pulses 2+. NEURO: Patient was alert and oriented to person place and time. Normal mental status exam. Cerebellar function intact. No focal neurological deficits. DIFFERENTIAL DIAGNOSIS: Differential diagnosis includes fracture, open fracture, subluxation, dislocation, contusion, ligamentous injury, neurovascular, compartment syndrome, concussion, contusion, fracture, subdural hematoma, epidural hematoma, intraparenchymal hemorrhage, as well as other pathologies. ED COURSE AND MEDICAL DECISION MAKING: HISTORY FROM INDEPENDENT HISTORIAN: Additional history was obtained from the patient's . MEDICATIONS GIVEN: Fentanyl 50 mcg IV x 2, Zofran 4 mg IV, 500 mL normal saline solution bolus, Ancef 2 g IV. A 50-50 mixture of 1% buffered lidocaine and 0.5% Marcaine were used for the hematoma block by orthopedics. INTERPRETATION OF LABS: I interpreted the labs with full lab results as below in the lab section of this note. Hemoglobin slightly low at 11.8, but white blood cell count normal at 7.77 and platelet count normal at 224. Coags were normal. Glucose 108, but BMP otherwise normal. INTERPRETATION OF IMAGING: X-rays of the left wrist and forearm were interpreted by myself and show comminuted, displaced, and angulated distal radius and ulnar fractures. Radiology report is still pending. Imaging studies were interpreted by myself and read by radiology as per the imaging section of this note. CT scan of the head without contrast showed trace amount of periventricular white matter low-density consistent with chronic small vessel disease and/or senescent changes which are unchanged from previous imaging. No acute large vessel infarct or acute intracranial hemorrhage. CONSULTATIONS: Dr. Reese of orthopedics. On-call hospitalist. PROCEDURES: See orthopedic note SPLINTING: See orthopedic note. MDM SUMMARY: I examined the patient. The patient had an obvious deformity of the left wrist that appears consistent with a displaced fracture. The patient also had a puncture wound to the ulnar aspect of the left wrist that appears consistent with a poke hole open ulnar fracture. No bone is protruding from the puncture wound. There is mild active bleeding. An IV lock was placed and labs were drawn. The patient was given a dose of fentanyl for pain, Zofran to prevent nausea, and she was hydrated with 500 mL normal saline solution bolus. The patient denies hitting her head, but she is on Plavix. CT scan of the head showed no evidence for acute intracranial bleed, but does show chronic changes as above. X-rays of the left wrist and forearm per my interpretation showed comminuted, displaced, and angulated distal radius and ulnar fractures. Radiology report is still pending. Due to the apparent open ulnar fracture with significant displacement of the distal ulnar and radius fractures I consulted Dr. Reese of orthopedics. The patient ate dinner at 7:30 PM and is unable to undergo conscious sedation anytime soon. Therefore, Dr. Reese recommended hematoma block for anesthesia for the reduction. At Dr. Reese's request, I irrigated the open wound with sterile saline and then dressed with a Betadine pressure dressing. The patient was given Ancef [address] Reese presented to the emergency department to perform the closed reduction and further irrigation under hematoma block anesthesia. Please refer to his dictation for further details. The patient was given another dose of fentanyl 50 mcg IV just prior to the procedure. The patient was splinted by orthopedics with postreduction x-rays by orthopedics showing improved alignment. Dr. Reese recommended the patient be admitted by medicine for continued IV antibiotics. I spoke with the on-call hospitalist who agreed to admit the patient for further management. Please refer to their dictation for further details. The patient's care was transferred in stable condition. I had a meaningful discussion about this patient with Dr. Pablo who agrees with my assessment and the treatment plan. DIAGNOSIS: Left distal radius and ulnar fracture Poke hole open ulnar fracture Fall with Plavix use Past Med/Surg History Medical History (Updated 10/06/23 @ 02:42 by Meagan Jacobs PA-C) Left wrist fracture Positive sm/FAMILY NURSE antibody Interstitial lung disease Rhinitis, allergic non-allergic, chronic congestion and runny Irregular heart beat pt reports recent holter monitor study ([facility]) - results pending. Basal cell carcinoma Chronic cough Abnormal CT scan, chest TIA (transient ischemic attack) hx 06/2022 Diverticulosis Vitamin D deficiency disease Vitamin B12 deficiency Uses hearing aid BL Former smoker 1959- approximately 10 years/half pack daily GERD without esophagitis Hypothyroidism Plantar fasciitis hx Migraine headache Osteoarthritis History of diverticulitis Dry eye syndrome RT EYE Hyperlipidemia Osteoporosis DEXA (01/25/19) demonstrating minimum T-score -2.8. 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 Daughter No problems noted. Other Family history non-contributory No family history of adverse response to anesthesia Denies family history of Colon cancer Ovarian cancer Prostate cancer Breast cancer Social History (Updated 08/30/23 @ 08:26 by Ny Elizondo RN) Smoking Status: Former smoker Tobacco Type: Cigarettes Age Started Using Tobacco: 18; Age Quit Using Tobacco: 30; packs per day: 0.5; Second Hand Exposure: No; Do You Dip or Chew Tobacco: No; Tobacco Cessation Education Requested by Patient: No Hx Alcohol Use: No Hx Substance Use: No Preferred Language: Yi Communication Ability: Effective Visual Impairment: No Limitations Hearing Ability: Use of Hearing Aid 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 Beliefs That Will Affect Care: None marital status: Current Living Situation: Spouse current occupational status: retired current occupation: Retired [employer] How many Children do You have: 1 Other Information That Helps Us Care for You: No Feels Safe at Home: Yes Safety Concerns: Feels Safe At This Time Childhood Exposure to Second-Hand Smoke: Yes Diet: regular caffeine: Yes (minimal) during the past year weight has: remained stable Dental Care, Regularly: Yes Physical Activity Frequency: 5-6 Times per Week Seatbelt Use: always Sunscreen Use: Yes Assistive Devices: Denture - Upper, Denture - Lower, Glasses and Hearing Aid - Bilateral Allergies Allergies Allergy/AdvReac Type Severity Reaction Status Date / Time amoxicillin AdvReac Diarrhea Verified 10/03/23 13:28 Home Meds Home Medications Medication Instructions Recorded Confirmed butterbur root extract 50 mg 50 mg PO BID 04/19/19 10/05/23 capsule (Petadolex) mecobalamin (vitamin B12) 1,000 1,000 mcg PO 5XWK 07/14/21 10/05/23 mcg chewable tablet calcium citrate 200 mg 1 tab PO BID 07/05/23 10/05/23 calcium-vitamin D3 6.25 mcg (250 unit) tablet (Citracal-D3 Petites) coQ10 (ubiquinol) 100 mg capsule 100 mg PO QPM 07/05/23 10/05/23 (Qunol Andre CoQ10) riboflavin (vitamin B2) 400 mg 400 mg PO QPM 07/05/23 10/05/23 tablet clopidogrel 75 mg tablet (Plavix) 75 mg PO QAM 08/17/23 10/05/23 lactobacillus combination no.4 3 3,000 mmu cells PO QAM 08/17/23 10/05/23 billion cell capsule (Probiotic) fluticasone propionate 50 1 spray intranasal QAM PRN 09/26/23 10/05/23 mcg/actuation nasal Congestion spray,suspension atorvastatin 40 mg tablet 40 mg PO DAILY 10/05/23 10/05/23 Previous Rx's Medication Instructions Recorded ipratropium bromide 21 mcg (0.03 2 spray intranasal BID PRN allergy 05/25/22 %) nasal spray symptoms #30 mL levothyroxine 112 mcg tablet 112 mcg PO QAM #30 tabs 07/28/23 (Synthroid) pantoprazole 40 mg tablet,delayed 40 mg PO BID #60 tabs 09/06/23 release cholecalciferol (vitamin D3) 25 1,000 unit PO QDL #90 tabs 09/20/23 mcg (1,000 unit) tablet (Vitamin D3) Results & Data (ED) Vital Signs Vital Signs - 24 hr 10/05/23 20:38 Pulse Rate 50 L Respiratory Rate 18 Respiratory Depth Normal Blood Pressure 149/67 H Blood Pressure Mean 94 Pulse Oximetry 99 Oxygen Delivery Method Room Air Sepsis Recent Fever Within 48 Hours No Sepsis New/Unexplained Change in Mental Status No Sepsis Action Taken by Nursing No Action Required Laboratory Data 10/05/23 22:15 10/05/23 22:15 Lab Results 10/05/23 Range/Units 22:15 WBC 7.77 (4.8-10.8) K/ul RBC 4.08 L (4.20-5.40) M/uL Hgb 11.8 L (12.0-16.0) g/dl Hct 35.5 L (37.0-47.0) % MCV 87.0 (80.0-100.0) fL MCH 28.9 (25.0-34.0) pg MCHC 33.2 (32.0-36.0) g/dL RDW Std Deviation 46.0 (36.4-46.3) fL RDW Coeff of Abel 14.3 (11.5-14.5) % Plt Count 224 (130-400) K/uL MPV 11.5 (9.4-12.4) fL Immature Gran % (Auto) 0.3 % Neut % (Auto) 67.7 % Lymph % (Auto) 20.6 % [place] % (Auto) 9.0 % Eos % (Auto) 1.8 % Baso % (Auto) 0.6 % Neut # (Auto) 5.26 (1.40-6.50) K/uL Lymph # (Auto) 1.60 (1.20-3.40) K/uL [place] # (Auto) 0.70 H (0.11-0.59) K/uL Eos # (Auto) 0.14 (0.00-0.50) K/uL Baso # (Auto) 0.05 (0.00-0.20) K/uL Immature Gran # (Auto) 0.02 (0.01-0.20) K/uL PT 10.5 (9.0-12.0) Seconds INR 1.0 (0.9-1.1) APTT 23 (21-31) Seconds PTT Ratio 0.8 Sodium 139 (136-145) mmol/L Potassium 4.2 (3.5-5.1) mmol/L Chloride 106 (98-107) mmol/L Carbon Dioxide 27 (21-32) mmol/L Anion Gap 6 (3-11) BUN 16 (6-23) mg/dl Creatinine 0.95 (0.6-1.2) mg/dl Est Cr Clr Drug Dosing 43.5 ml/min Est GFR ( Amer) 66.5 ml/min Est GFR (Non-Af Amer) 57.4 ml/min BUN/Creatinine Ratio 16.8 (10-20) Glucose 108 H (70-99(Fasting)) mg/dl Calcium 10.2 (8.6-10.3) mg/dl Administered Medications Acetaminophen (Acetaminophen 325 Mg Tab) 650 mg PO Q4H PRN PRN Reason: pain/fever Stop: 11/04/23 23:38 Last Admin: 10/06/23 01:28 Dose: 650 mg Documented By: AMS Discontinued Medications Bupivacaine HCl (Bupivacaine 0.5 % 5 Mg/1 Ml Mpf 30ml Vial) 30 ml INFIL NOW ONE Stop: 10/05/23 22:15 Last Admin: 10/06/23 00:20 Dose: 30 ml Documented By: [id number] Fentanyl Citrate (Fentanyl Citrate Pf 100 Mcg/2 Ml Vial) 50 mcg IV NOW STA Stop: 10/05/23 21:49 Last Admin: 10/05/23 22:20 Dose: 50 mcg Documented By: KATHIE Fentanyl Citrate (Fentanyl Citrate Pf 100 Mcg/2 Ml Vial) 50 mcg IV NOW STA Stop: 10/05/23 23:22 Last Admin: 10/05/23 23:27 Dose: 50 mcg Documented By: Sodium Chloride (Nss) 500 mls @ 999 mls/hr IV .Q31M ONE Stop: 10/05/23 22:18 Last Admin: 10/06/23 00:54 Dose: Not Given Documented By: Cefazolin Sodium (Ancef 2000mg) 2,000 mg in 15 mls @ 3.75 mls/min IV NOW STA Stop: 10/05/23 22:17 Last Admin: 10/06/23 00:26 Dose: 3.75 mls/min Documented By: Lidocaine HCl (Xylocaine 1%/Sod Bicarb 20 Ml Vial) 20 ml INFIL NOW ONE Stop: 10/05/23 22:15 Last Admin: 10/06/23 00:20 Dose: 20 ml Documented By: Ondansetron HCl (Ondansetron Inj 2 Mg/Ml 2 Ml Vial) 4 mg IV NOW STA Stop: 10/05/23 21:49 Last Admin: 10/05/23 22:20 Dose: 4 mg Documented By: KATHIE Imaging Data Radiologist's Impression: Head CT 10/05/23 21:48 Exam(s): CT HEAD Without Contrast EXAM: CT Head Without Intravenous Contrast CLINICAL HISTORY: Reason for exam: Trauma. TECHNIQUE: Axial computed tomography images of the head/brain without intravenous contrast. CTDI is 38.31 mGy and DLP is 625.8 mGy-cm. Automated exposure control was utilized for the study. A dose lowering technique was utilized adhering to the principles of ALARA. COMPARISON: MRI brain from May 03, 2022 FINDINGS: Brain: Trace amount of periventricular white matter low density consistent with chronic small vessel disease and/or senescent changes, unchanged. The brain is otherwise unremarkable. No acute large vessel infarct or intracranial hemorrhage is seen. Ventricles: Unremarkable. No ventriculomegaly. Bones/joints: Unremarkable. No acute fracture. Soft tissues: Unremarkable. Sinuses: Unremarkable as visualized. No acute sinusitis. Mastoid air cells: Unremarkable as visualized. No mastoid effusion. IMPRESSION: Trace amount of periventricular white matter low density consistent with chronic small vessel disease and/or senescent changes, unchanged. The brain is otherwise unremarkable. No acute large vessel infarct or intracranial hemorrhage is seen. Electronically signed by: Gregorio Bear MD 10/05/23 23:52 PM Discharge Plan Visit Data Chief Complaint: Bleeding Stated Complaint: LT WRIST BREAK/INJURY ED Provider: Brad Pablo ED Midlevel Provider: Maegan Jacobs Discharge Problem: Open fracture of distal end of left ulna, Fracture of left distal radius, Fall, Chronic anticoagulation Patient Disposition: Admitted As Inpatient Condition: Good Discharge Instructions Interventions: ED Discharge Assessment Last Done: 10/06/23 01:03 Discharge Problem: Open fracture of distal end of left ulna Qualifiers: Encounter type: initial encounter Fracture morphology: unspecified fracture morphology Fracture of left distal radius Qualifiers: Encounter type: initial encounter Fracture type: closed Fracture morphology: u nspecified fracture morphology Qualified Code(s): S52.502A - Unspecified fracture of the lower end of left radius, initial encounter for closed fracture Fall Qualifiers: Encounter type: initial encounter Qualified Code(s): W19.XXXA - Unspecified fall, initial encounter
[2023-10-05] MEDS: ONDANSETRON INJ 2 MG/ML 2 ML VIAL IV STA (22:20)
[2023-10-05] MEDS: fentaNYL citrate PF 100 MCG/2 ML VIAL IV STA ×2 (22:20→23:27)
[2023-10-05 22:38] LABS: Basophils # (auto) 0.05 K/uL (0.00-0.20); Basophils % (auto) 0.6 %; Eosinophils # (auto) 0.14 K/uL (0.00-0.50); Eosinophils % (auto) 1.8 %; Hematocrit (blood only) 35.5 % (37.0-47.0); Hemoglobin 11.8 g/dl (12.0-16.0); Immature Granulocytes # (auto) 0.02 K/uL (0.01-0.20); Immature Granulocytes % (auto) 0.3 %; Lymphocytes % (auto) 20.6 %; Mean Corpuscular Hemoglobin 28.9 pg (25.0-34.0); Mean Corpuscular Hgb Conc 33.2 g/dL (32.0-36.0); Mean Platelet Volume 11.5 fL (9.4-12.4); Neutrophils # (auto) 5.26 K/uL (1.40-6.50); Neutrophils % (auto) 67.7 %; Platelet Count 224 K/uL (130-400); RDW Coefficient of Variation 14.3 % (11.5-14.5); Red Blood Count 4.08 M/uL (4.20-5.40); White Blood Count 7.77 K/ul (4.8-10.8)
[2023-10-05 22:54] LABS: BUN Creatinine Ratio 16.8 (10-20); Calcium 10.2 mg/dl (8.6-10.3); Creatinine Clr Calc Pharmacy 43.5 ml/min; Est GFR (African American) 66.5 ml/min; Est GFR (Non-African American) 57.4 ml/min; Potassium 4.2 mmol/L (3.5-5.1)
--- NOTE | 2023-10-05 22:58 | History & Physical Report ---
Date of Service October 05, 2023 Assessment & Plan (1) Left wrist fracture: Plan: Pt is a 78 yo female with PMH of osteoporosis, BCC, ILD, TIA (2022), and HLD presenting after a fall. Traumatic left wrist fracture - s/p fall from exercise ball platform - closed reduction performed in the ER by ortho - d/t open nature of fracture, will need IV ABX x48hrs; s/p cefazolin x1 in ER- will continue upon admission - pain control with tylenol PRN, dilaudid for breakthrough pain - will require outpatient ortho f/u BCC of nose - pt in current radiation tx with next appt tomorrow 10/05 at 1PM - pt would like to have her radiation performed tomorrow while hospitalized if possible - recommend discussing with rad/onc to ensure she gets to her appt Hypothyroidism - continue home levothyroxine 112 mcg daily Hx of TIA - continue plavix 75 mg daily, atorvastatin 40 mg daily Diet: heart healthy VTE ppx: will defer in the setting of open fracture and expected short stay; if visit is prolonged, may need to consider addition of chemoppx Code: pt does NOT want CPR or any procedures that could break her ribs. She would like intubation or defibrillation if necessary. Her is to make decisions for her if she is unable. Dispo: med/surg (2) Basal cell carcinoma of nasal tip: (3) Interstitial lung disease: (4) GERD (gastroesophageal reflux disease): (5) Hx TIA/stroke w/o resid: (6) Hypothyroidism: History of Present Illness Chief Complaint: fall Primary Care Provider: Bridget Perez MD Pt is a 78 yo female with PMH of osteoporosis, BCC, ILD, TIA (2022), and HLD presenting after a fall. Pt was on an exercise ball platform when she fell and broke her fall with her left hand. She had pain in her left wrist/hand and heard a pop when she fell. She denies hitting her head or losing consciousness. In the ER, pt was given ancef x1, 1L NS, 4 mg zofran x1, and fentanyl 50 mcg x2. Allergies Allergy/AdvReac Type Severity Reaction Status Date / Time amoxicillin AdvReac Diarrhea Verified 10/03/23 13:28 Home Medications Medication Instructions Recorded Confirmed Type butterbur root extract 50 mg 50 mg PO BID 04/19/19 10/05/23 History capsule (Petadolex) mecobalamin (vitamin B12) 1,000 1,000 mcg PO 5XWK 07/14/21 10/05/23 History mcg chewable tablet ipratropium bromide 21 mcg (0.03 2 spray intranasal BID PRN allergy 05/25/22 10/05/23 Rx %) nasal spray symptoms #30 mL calcium citrate 200 mg 1 tab PO BID 07/05/23 10/05/23 History calcium-vitamin D3 6.25 mcg (250 unit) tablet (Citracal-D3 Petites) coQ10 (ubiquinol) 100 mg capsule 100 mg PO QPM 07/05/23 10/05/23 History (Qunol Andre CoQ10) riboflavin (vitamin B2) 400 mg 400 mg PO QPM 07/05/23 10/05/23 History tablet levothyroxine 112 mcg tablet 112 mcg PO QAM #30 tabs 07/28/23 10/05/23 Rx (Synthroid) clopidogrel 75 mg tablet (Plavix) 75 mg PO QAM 08/17/23 10/05/23 History lactobacillus combination no.4 3 3,000 mmu cells PO QAM 08/17/23 10/05/23 History billion cell capsule (Probiotic) pantoprazole 40 mg tablet,delayed 40 mg PO BID #60 tabs 09/06/23 10/05/23 Rx release cholecalciferol (vitamin D3) 25 1,000 unit PO QDL #90 tabs 09/20/23 10/05/23 Rx mcg (1,000 unit) tablet (Vitamin D3) fluticasone propionate 50 1 spray intranasal QAM PRN 09/26/23 10/05/23 History mcg/actuation nasal Congestion spray,suspension atorvastatin 40 mg tablet 40 mg PO DAILY 10/05/23 10/05/23 History Past Med/Surg History Medical History (Updated 10/06/23 @ 02:42 by Meagan Jacobs PA-C) Left wrist fracture Positive sm/BINDER SORTER antibody Interstitial lung disease Rhinitis, allergic non-allergic, chronic congestion and runny Irregular heart beat pt reports recent holter monitor study ([facility]) - results pending. Basal cell carcinoma Chronic cough Abnormal CT scan, chest TIA (transient ischemic attack) hx 06/2022 Diverticulosis Vitamin D deficiency disease Vitamin B12 deficiency Uses hearing aid BL Former smoker 1960- approximately 10 years/half pack daily GERD without esophagitis Hypothyroidism Plantar fasciitis hx Migraine headache Osteoarthritis History of diverticulitis Dry eye syndrome RT EYE Hyperlipidemia Osteoporosis DEXA (01/25/19) demonstrating minimum T-score -2.8. 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 Daughter No problems noted. Other Family history non-contributory No family history of adverse response to anesthesia Denies family history of Colon cancer Ovarian cancer Prostate cancer Breast cancer Social History (Updated 08/30/23 @ 08:26 by yN Elizondo RN) Smoking Status: Former smoker Tobacco Type: Cigarettes Age Started Using Tobacco: 18; Age Quit Using Tobacco: 30; packs per day: 0.5; Second Hand Exposure: No; Do You Dip or Chew Tobacco: No; Tobacco Cessation Education Requested by Patient: No Hx Alcohol Use: No Hx Substance Use: No Preferred Language: Bhutanese Communication Ability: Effective Visual Impairment: No Limitations Hearing Ability: Use of Hearing Aid Child Support Agent Required: No Beliefs That Will Affect Care: None marital status: Current Living Situation: Spouse current occupational status: retired current occupation: Retired [employer] How many Children do You have: 1 Other Information That Helps Us Care for You: No Feels Safe at Home: Yes Safety Concerns: Feels Safe At This Time Childhood Exposure to Second-Hand Smoke: Yes Diet: regular caffeine: Yes (minimal) during the past year weight has: remained stable Dental Care, Regularly: Yes Physical Activity Frequency: 5-6 Times per Week Seatbelt Use: always Sunscreen Use: Yes Assistive Devices: Denture - Upper, Denture - Lower, Glasses and Hearing Aid - Bilateral Review of Systems Review of Systems: As per HPI Physical Exam Constitutional: Minimal distress, vitals WNL. Respiratory: CTA bilaterally. Non labored breathing. No rhonchi, wheezing, or crackles. Cardiovascular: RRR. No murmurs noted. No LE edema. Musculoskeletal: Displaced fracture deformity noted of left wrist. Skin: No rashes or skin lesions noted. Neurologic: Sensation grossly intact. No FND appreciated. Psychiatric: Speech of normal pace and content. Mood and affect congruent. Results & Data Results & Data Vital Signs (Past 12 Hours) Vital Signs Pulse Resp BP Pulse Ox O2 Del Method 10/05/23 20:38 50 L 18 149/67 H 99 Room Air Laboratory Results Laboratory Results WBC 7.77 K/ul (4.8-10.8) 10/05/23 22:15 RBC 4.08 M/uL (4.20-5.40) L 10/05/23 22:15 Hgb 11.8 g/dl (12.0-16.0) L 10/05/23 22:15 Hct 35.5 % (37.0-47.0) L 10/05/23 22:15 MCV 87.0 fL (80.0-100.0) 10/05/23 22:15 MCH 28.9 pg (25.0-34.0) 10/05/23 22:15 MCHC 33.2 g/dL (32.0-36.0) 10/05/23 22:15 RDW Std Deviation 46.0 fL (36.4-46.3) 10/05/23 22:15 RDW Coeff of Abel 14.3 % (11.5-14.5) 10/05/23 22:15 Plt Count 224 K/uL (130-400) 10/05/23 22:15 MPV 11.5 fL (9.4-12.4) 10/05/23 22:15 Immature Gran % (Auto) 0.3 % 10/05/23 22:15 Neut % (Auto) 67.7 % 10/05/23 22:15 Lymph % (Auto) 20.6 % 10/05/23 22:15 Grady % (Auto) 9.0 % 10/05/23 22:15 Eos % (Auto) 1.8 % 10/05/23 22:15 Baso % (Auto) 0.6 % 10/05/23 22:15 Neut # (Auto) 5.26 K/uL (1.40-6.50) 10/05/23 22:15 Lymph # (Auto) 1.60 K/uL (1.20-3.40) 10/05/23 22:15 Grady # (Auto) 0.70 K/uL (0.11-0.59) H 10/05/23 22:15 Eos # (Auto) 0.14 K/uL (0.00-0.50) 10/05/23 22:15 Baso # (Auto) 0.05 K/uL (0.00-0.20) 10/05/23 22:15 Immature Gran # (Auto) 0.02 K/uL (0.01-0.20) 10/05/23 22:15 PT 10.5 Seconds (9.0-12.0) 10/05/23 22:15 INR 1.0 (0.9-1.1) 10/05/23 22:15 APTT 23 Seconds (21-31) 10/05/23 22:15 PTT Ratio 0.8 10/05/23 22:15 Sodium 139 mmol/L (136-145) 10/05/23 22:15 Potassium 4.2 mmol/L (3.5-5.1) 10/05/23 22:15 Chloride 106 mmol/L (98-107) 10/05/23 22:15 Carbon Dioxide 27 mmol/L (21-32) 10/05/23 22:15 Anion Gap 6 (3-11) 10/05/23 22:15 BUN 16 mg/dl (6-23) 10/05/23 22:15 Creatinine 0.95 mg/dl (0.6-1.2) 10/05/23 22:15 Est Cr Clr Drug Dosing 43.5 ml/min 10/05/23 22:15 Est GFR ( Amer) 66.5 ml/min 10/05/23 22:15 Est GFR (Non-Af Amer) 57.4 ml/min 10/05/23 22:15 BUN/Creatinine Ratio 16.8 (10-20) 10/05/23 22:15 Glucose 108 mg/dl (70-99(Fasting)) H 10/05/23 22:15 Calcium 10.2 mg/dl (8.6-10.3) 10/05/23 22:[address] 10/05/23 21:48 Exam(s): CT HEAD Without Contrast EXAM: CT Head Without Intravenous Contrast CLINICAL HISTORY: Reason for exam: Trauma. TECHNIQUE: Axial computed tomography images of the head/brain without intravenous contrast. CTDI is 38.31 mGy and DLP is 625.8 mGy-cm. Automated exposure control was utilized for the study. A dose lowering technique was utilized adhering to the principles of ALARA. COMPARISON: MRI brain from May 03, 2022 FINDINGS: Brain: Trace amount of periventricular white matter low density consistent with chronic small vessel disease and/or senescent changes, unchanged. The brain is otherwise unremarkable. No acute large vessel infarct or intracranial hemorrhage is seen. Ventricles: Unremarkable. No ventriculomegaly. Bones/joints: Unremarkable. No acute fracture. Soft tissues: Unremarkable. Sinuses: Unremarkable as visualized. No acute sinusitis. Mastoid air cells: Unremarkable as visualized. No mastoid effusion. IMPRESSION: Trace amount of periventricular white matter low density consistent with chronic small vessel disease and/or senescent changes, unchanged. The brain is otherwise unremarkable. No acute large vessel infarct or intracranial hemorrhage is seen. Electronically signed by: Gregorio Bear MD 10/05/23 23:52 PM Supervising Physician Co-Signing Physician Notes Patient seen and examined, chart reviewed, case discussed with Dr. Harris and I agree with the assessment and plan as above. In brief, patient is a pleasant 78yo female with h/o TIA, Hypothyroidism presenting after a fall from a piece of exercise equipment resulting in an open, displaced fracture o the left wrist. Fracture was reduced in the ER by orthopedic surgery Patient presently in her room, resting comfortably. Left wrist has been placed in a splint and is resting on a pillow HEENT - NC/AT, PERRL Heart - +S1/S2, regular Lungs - CTA anteriorly Abd - soft, NT/ND Ext - warm, well perfused. sensation/mobility intact of left hand fingers, capillary refill <2sec Labs and images reviewed Assessment/Plan -Pain control -Continue home medications -Remainder as above Resident Activity Tracking Resident Involvement: Resident Care Provided Care Provided: Adult [facility]
--- NOTE | 2023-10-05 22:59 | Orthopedic Consultation ---
Date of Consultation October 05, 2023 Assessment & Plan (1) Left wrist fracture: Impression: Left distal radius and ulna fractures comminuted and displaced, poke hole open ulna fracture PLAN: Discussed options of open vs closed reduction, with irrigation and debridement, as well as the risks and benefits of each. As she recently ate, will preform a hematoma block prior to procedure. She agreed and informed consent signed. Refer to procedure note for further details, she tolerated the procedure well. She was placed in a sugar tongue splint after the procedure. No lifting LUE. RICE Sling for comfort. She will be admitted to hospitalist service and continue Iv Abx for 48 hours. 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 Present on Admission?: Yes History of Present Illness Reason for Consultation: Left wrist fracture Requesting Physician: Tom Reese MD History of Present Illness This 78-year-old female fell while standing on an exercise ball platform tonight as she stepped off catching herself with her left arm on the carpeted floor. She heard a 'snap'. She denies hitting her head. She denies loss of consciousness. She is on Plavix. She denies any other injuries other than the left wrist and forearm. 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 Allergies Allergy/AdvReac Type Severity Reaction Status Date / Time amoxicillin AdvReac Diarrhea Verified 10/03/23 13:28 Home Medications Medication Instructions Recorded Confirmed Type butterbur root extract 50 mg 50 mg PO BID 04/19/19 10/05/23 History capsule (Petadolex) mecobalamin (vitamin B12) 1,000 1,000 mcg PO 5XWK 07/14/21 10/05/23 History mcg chewable tablet ipratropium bromide 21 mcg (0.03 2 spray intranasal BID PRN allergy 05/25/22 10/05/23 Rx %) nasal spray symptoms #30 mL calcium citrate 200 mg 1 tab PO BID 07/05/23 10/05/23 History calcium-vitamin D3 6.25 mcg (250 unit) tablet (Citracal-D3 Petites) coQ10 (ubiquinol) 100 mg capsule 100 mg PO QPM 07/05/23 10/05/23 History (Qunol Andre CoQ10) riboflavin (vitamin B2) 400 mg 400 mg PO QPM 07/05/23 10/05/23 History tablet levothyroxine 112 mcg tablet 112 mcg PO QAM #30 tabs 07/28/23 10/05/23 Rx (Synthroid) clopidogrel 75 mg tablet (Plavix) 75 mg PO QAM 08/17/23 10/05/23 History lactobacillus combination no.4 3 3,000 mmu cells PO QAM 08/17/23 10/05/23 History billion cell capsule (Probiotic) pantoprazole 40 mg tablet,delayed 40 mg PO BID #60 tabs 09/06/23 10/05/23 Rx release cholecalciferol (vitamin D3) 25 1,000 unit PO QDL #90 tabs 09/20/23 10/05/23 Rx mcg (1,000 unit) tablet (Vitamin D3) fluticasone propionate 50 1 spray intranasal QAM PRN 09/26/23 10/05/23 History mcg/actuation nasal Congestion spray,suspension atorvastatin 40 mg tablet 40 mg PO DAILY 10/05/23 10/05/23 History Patient History Medical History (Updated 10/05/23 @ 22:52 by Javi Reese MD) Left wrist fracture 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 Basal cell carcinoma Chronic cough Abnormal CT scan, chest TIA (transient ischemic attack) hx 06/2022 Diverticulosis Vitamin D deficiency disease Vitamin B12 deficiency Uses hearing aid BL Former smoker 1959- approximately 10 years/half pack daily GERD without esophagitis Hypothyroidism Plantar fasciitis hx Migraine headache Osteoarthritis History of diverticulitis Dry eye syndrome RT EYE Hyperlipidemia Osteoporosis DEXA (01/25/19) demonstrating minimum T-score -2.8. 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 Daughter No problems noted. Other Family history non-contributory No family history of adverse response to anesthesia Denies family history of Colon cancer Ovarian cancer Prostate cancer Breast cancer Social History (Updated 08/30/23 @ 08:26 by Ny Elizondo RN) Smoking Status: Never smoker Tobacco Type: Cigarettes Age Started Using Tobacco: 18; Age Quit Using Tobacco: 30; packs per day: 0.5; Second Hand Exposure: No; Do You Dip or Chew Tobacco: No; Hx Alcohol Use: Yes Alcohol type: wine Hx Substance Use: No Preferred Language: Slovak Communication Ability: Effective Visual Impairment: No Limitations Hearing Ability: Use of Hearing Aid Anatomic Pathology Assistant Required: No Beliefs That Will Affect Care: None marital status: Current Living Situation: Spouse current occupational status: retired current occupation: Retired [employer] How many Children do You have: 1 Feels Safe at Home: Yes Childhood Exposure to Second-Hand Smoke: Yes Diet: regular caffeine: Yes (minimal) during the past year weight has: remained stable Dental Care, Regularly: Yes Physical Activity Frequency: 5-6 Times per Week Seatbelt Use: always Sunscreen Use: Yes Assistive Devices: Glasses and Hearing Aid - Bilateral Review of Systems Review of Systems: All systems reviewed & are unremarkable except as noted in HPI & below Physical Exam Physical Exam: LUE: Obvious deformity BCR < 2 sec Sensation to light touch slightly diminished most notably in the Small finger Motor: limited secondarily to pain able to flex and extend digits, extend index finger, cross fingers, unable to make an ok sign. abrasion ulnarly and small poke hole volar ulnar side. Post reduction deformity resolved. Sensation to light touch improved: Thumb normal, IF 90%, MF 85%, RF 85%/80%, SF 75% Able to flex, extend digits, cross fingers, attempt to make ok sign, much easier and reduced pain. Results & Data Vital Signs (Past 12 Hours) Vital Signs Pulse Resp BP Pulse Ox O2 Del Method 10/05/23 20:38 50 L 18 149/67 H 99 Room Air Laboratory Results Laboratory Results WBC 7.77 K/ul (4.8-10.8) 10/05/23 22:15 RBC 4.08 M/uL (4.20-5.40) L 10/05/23 22:15 Hgb 11.8 g/dl (12.0-16.0) L 10/05/23 22:15 Hct 35.5 % (37.0-47.0) L 10/05/23 22:15 MCV 87.0 fL (80.0-100.0) 10/05/23 22:15 MCH 28.9 pg (25.0-34.0) 10/05/23 22:15 MCHC 33.2 g/dL (32.0-36.0) 10/05/23 22:15 RDW Std Deviation 46.0 fL (36.4-46.3) 10/05/23:15 RDW Coeff of Abel 14.3 % (11.5-14.5) 10/05/23 22:15 Plt Count 224 K/uL (130-400) 10/05/23 22:15 MPV 11.5 fL (9.4-12.4) 10/05/23 22:15 Immature Gran % (Auto) 0.3 % 10/05/23 22:15 Neut % (Auto) 67.7 % 10/05/23 22:15 Lymph % (Auto) 20.6 % 10/05/23 22:15 Leake % (Auto) 9.0 % 10/05/23 22:15 Eos % (Auto) 1.8 % 10/05/23 22:15 Baso % (Auto) 0.6 % 10/05/23 22:15 Neut # (Auto) 5.26 K/uL (1.40-6.50) 10/05/23 22:15 Lymph # (Auto) 1.60 K/uL (1.20-3.40) 10/05/23 22:15 Leake # (Auto) 0.70 K/uL (0.11-0.59) H 10/05/23 22:15 Eos # (Auto) 0.14 K/uL (0.00-0.50) 10/05/23 22:15 Baso # (Auto) 0.05 K/uL (0.00-0.20) 10/05/23 22:15 Immature Gran # (Auto) 0.02 K/uL (0.01-0.20) 10/05/23 22:15 Diagnostic Findings Reviewed x-rays of left wrist and forearm which a significantly displaced distal radius and ulna fractures, comminuted. Incidental finding of 1st [facility] OA.
[2023-10-05 23:10] LABS: Partial Thromboplastin Ratio 0.8; Partial Thromboplastin Time 23 Seconds (21-31); Prothrombin Time 10.5 Seconds (9.0-12.0)
[2023-10-05] MEDS ORDERED: POLYETHYLENE (MIRALAX) 17 GM PACK PO PRN (23:39)
--- NOTE | 2023-10-05 23:43 | Operative Report ---
Post Operative Report Pre & Post Diagnosis Pre-op Dx: Left distal radius and ulna fractures, poke hole open ulna fracture Post-op Dx: Left distal radius and ulna fractures, poke hole open ulna fracture I identified the patient and participated in the time-out.: Yes Procedure Closed reduction, irrigation & debridement left wrist fractures. Surgeon Javi Reese MD Dye Padder Operator KARLI Chino PA-C Estimated Blood Loss 2 Findings Consistent with Post-Op Diagnosis Specimens n/a Complications none Indications Poke hole open left wrist fracture in 78 yo female who fell earlier today. Discussed risks and benefits and agreed to proceed with the above procedure. Informed consent signed. Description of Procedure After preforming a time out identifying the patient and the left wrist as the correct wrist for the procedure, the dorsum of the wrist was palpated and the fracture was marked. This area was prepped with Betadine. A hematoma block was preformed in the standard fashion using 5 cc of 1% Lidocaine and 5 cc of 0.5 % Marcaine. The area was cleaned and dried. After the block had taken affect, the patient was hung in finger traps with 10 lbs of counter traction on the upper arm. The poke hole was irrigated with 1L normal saline. The wrist had improved alignment after approximately 10 min, but still required manipulation with recreation of the fracture and a reduction manoeuvre which showed much improved alignment. Post reduction x-rays showed excellent alignment in the AP, and as we were obtaining the lateral it appeared to slip slightly which was confirmed on the lateral. Another lateral was obtained while holding the wrist reduced, which showed much improved alignment. Xeroform and 4x4's were placed over the ulnar wound. A well padded sugar tongue splint was applied by my PA as I held the reduction preforming a 3 point mold. Post reduction radiographs showed a well reduced distal radius and ulna fractures. She tolerated the procedure well and had improved movement of her digits with significantly decreased pain. She will be admitted to hospitalist service. RICE Sling for comfort. No lifting LUE. Continue IV Abx 48 hours. I attest to the content of the Intraoperative Record and any orders documented therein. Any exceptions are noted below.
--- NOTE | 2023-10-05 23:53 | CT Scan Report ---
Exam(s): CT HEAD Without Contrast EXAM: CT Head Without Intravenous Contrast CLINICAL HISTORY: Reason for exam: Trauma. TECHNIQUE: Axial computed tomography images of the head/brain without intravenous contrast. CTDI is 38.31 mGy and DLP is 625.8 mGy-cm. Automated exposure control was utilized for the study. A dose lowering technique was utilized adhering to the principles of ALARA. COMPARISON: MRI brain from May 03, 2022 FINDINGS: Brain: Trace amount of periventricular white matter low density consistent with chronic small vessel disease and/or senescent changes, unchanged. The brain is otherwise unremarkable. No acute large vessel infarct or intracranial hemorrhage is seen. Ventricles: Unremarkable. No ventriculomegaly. Bones/joints: Unremarkable. No acute fracture. Soft tissues: Unremarkable. Sinuses: Unremarkable as visualized. No acute sinusitis. Mastoid air cells: Unremarkable as visualized. No mastoid effusion. IMPRESSION: Trace amount of periventricular white matter low density consistent with chronic small vessel disease and/or senescent changes, unchanged. The brain is otherwise unremarkable. No acute large vessel infarct or intracranial hemorrhage is seen. Electronically signed by: Gregorio Bear MD 10/05/23 23:52 PM
--- NOTE | 2023-10-06 00:13 | Emergency Department Note ---
ED Visit Note I was consulted in regards to the patient's presentation and plan of care by the Advanced Practice Provider. I engaged in a detailed/meaningful discussion with the Advanced Practice Provider in regards to this patient's workup and plan of care. Please see the Advanced Practice Provider's note for full details of the patient encounter. I agree with the assessment and plan of Meagan Jacobs PA-C. Brad Pablo, DO Emergency Medicine .
[2023-10-06] MEDS: XYLOCAINE 1%/SOD BICARB 20 ML VIAL INFIL ONE (00:20)
[2023-10-06] MEDS: BUPIVACAINE 0.5 % 5 MG/1 ML MPF 30ML VIAL INFIL ONE (00:20)
[2023-10-06] MEDS: ceFAZolin 2000MG 2,000 MG/15 ML SYR IV STA (00:26)
[2023-10-06] MEDS: SODIUM CHLORIDE 0.9% 500 ML IV ONE (00:54)
[2023-10-06] MEDS ORDERED: FLUTICASONE PROPIONATE NA SPR 16 GM BTL NAE PRN (01:25)
[2023-10-06] MEDS ORDERED: HYDROmorphone INJ 0.5 MG/0.5 ML SYR IV PRN (01:25)
[2023-10-06] MEDS: ACETAMINOPHEN 325 MG TAB PO PRN (01:28)
[2023-10-06] MEDS ORDERED: IPRATROPIUM BROMIDE NASAL SPRAY 0.06% 15ML NAE PRN (02:19)
[2023-10-06] MEDS: HYDROmorphone INJ 0.5 MG/0.5 ML SYR IV PRN (02:21)
--- NOTE | 2023-10-06 05:28 | Billing Data ---
Date of Service October 05, 2023 Coding Level of Care Code 13655 INT INP/OBS CARE
[2023-10-06] MEDS: LEVOTHYROXINE SODIUM 112 MCG TABLET PO SCH (06:12)
[2023-10-06] MEDS: ceFAZolin 2000MG 2,000 MG/15 ML SYR IV SCH (06:36)
[2023-10-06] MEDS: ONDANSETRON INJ 2 MG/ML 2 ML VIAL IV PRN (06:48)
--- NOTE | 2023-10-06 07:24 | XRay Report ---
XR forearm LT 2V, XR wrist LT 2V CLINICAL HISTORY: fall TECHNIQUE: 2 views of the left forearm and 2 views of the left wrist were obtained. Comparison: None available at the time of this dictation. FINDINGS: Comminuted and displaced and slightly overridden fractures of the distal radius and ulna are seen. In volvement of the articular surface and ulnar styloid is seen. Degenerative changes are seen in the ca rpal and carpometacarpal joints. Soft tissue swelling is seen. IMPRESSION: Comminuted and displaced fractures of the distal radius and ulna with associated soft tissue swelling . ACT 112: Negative or not required by law. Electronically signed by: Gamaliel Palma M.D. 10/06/2023 7:22 AM
--- NOTE | 2023-10-06 07:25 | XRay Report ---
XR wrist LT min 3V routine, XR wrist LT 2V CLINICAL HISTORY: Post reduction TECHNIQUE: 3 views of the left wrist were obtained at 2346 hours and 2 views of the left wrist were o btained at 2355 hours. Comparison: Comparison is made to wrist radiograph a 5824 FINDINGS: 2346 hours: Significantly improved alignment of the fracture fragments of the distal radial and ulnar fractures. Intra-articular extension of the radial fracture is again seen. On the final image, the fragments are near-anatomic alignment. Soft tissue swelling is seen about the wrist. 2355 hours: A cast has been placed limiting fine bony detail. Fracture fragments again remain essentially anatomi bhanu aligned. IMPRESSION: Interval reduction of radial and ulnar fracture with anatomic alignment in the final images. ACT 112: Negative or not required by law. Electronically signed by: Gamaliel Palma M.D. 10/06/2023 7:24 AM
[2023-10-06] MEDS: CLOPIDOGREL BISULFATE 75 MG TAB PO SCH (08:08)
[2023-10-06] MEDS: ADVANCED PROBIOTIC 625 MG CAPSULE PO SCH (08:08)
[2023-10-06] MEDS: PANTOprazole 40 MG TAB PO SCH (08:08)
[2023-10-06] MEDS: ATORVASTATIN 40 MG TAB PO SCH (08:08)
[2023-10-06 08:55] LABS: Hematocrit (blood only) 34.3 % (37.0-47.0); Hemoglobin 10.8 g/dl (12.0-16.0); Mean Corpuscular Hgb Conc 31.5 g/dL (32.0-36.0); Mean Corpuscular Volume 88.9 fL (80.0-100.0); Mean Platelet Volume 11.1 fL (9.4-12.4); Platelet Count 213 K/uL (130-400); RDW Coefficient of Variation 14.5 % (11.5-14.5); RDW Standard Deviation 46.6 fL (36.4-46.3); Red Blood Count 3.86 M/uL (4.20-5.40); White Blood Count 9.31 K/ul (4.8-10.8)
[2023-10-06 09:10] LABS: BUN Creatinine Ratio 18.6 (10-20); Calcium 9.9 mg/dl (8.6-10.3); Creatinine Clr Calc Pharmacy 48.1 ml/min; Est GFR (Non-African American) 64.7 ml/min; Potassium 4.4 mmol/L (3.5-5.1)
--- NOTE | 2023-10-06 09:21 | Orthopedic Progress Note ---
Date of Service October 06, 2023 Assessment & Plan (1) Left wrist fracture: Plan: Impression: Left distal radius and ulna fractures comminuted and displaced, poke hole open ulna fracture PLAN: S/P Left wrist I&D, closed reduction in ED of left open distal radius fracture. Doing well today Splint and sling in place Ice to left wrist as needed for pain/swelling. No use of left arm. No lifting. Sling for comfort when in bed. Continue medicine as primary service. Pain medication as needed for pain. Continue IV Ancef for 48 hours. Elevation above heart to relieve pain/swelling. Allowed for finger ROM as tolerated. Will continue to follow Plan for probable discharge to home tomorrow with outpatient follow up with [facility]. 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 Admission and Anticipated Discharge Date Admission Date: October 05, 2023 Subjective Patient resting in bed, at bedside. Patient's wrist pain much improved today, she is "groggy" from pain medication Mild nausea last night - improved with Zofran She is concerned about missing her radiation therapy appointment at the cancer center scheduled for today and tomorrow. Physical Exam Musculoskeletal: Exam of left upper extremity: Splint intact. Arm elevated on pillows. fingers nontender with palpation. Cap refill is brisk. Tolerates gentle ROM of fingers and thumb. Distal N/V intact. Nontender at left shoulder. Results & Data Vital Signs (Past 12 Hours) Vital Signs Temp Pulse Resp BP Pulse Ox O2 Del Method 10/06/23 07:58 36.7 C 61 16 141/75 H 88 L Room Air 10/06/23 06:20 36.9 C 87 18 130/77 94 Room Air 10/06/23 01:30 36.9 C 55 L 16 141/89 H 94 Room Air 10/06/23 01:03 Room Air
--- NOTE | 2023-10-06 11:36 | Hospitalist Progress Note ---
Date of Service October 06, 2023 Assessment & Plan (1) Left wrist fracture: Plan: Pt is a 78 yo female with PMH of osteoporosis, BCC currently undergoing radiation therapy, ILD, TIA (2022), and HLD presenting after a fall with open wrist fracture. Traumatic left wrist fracture - s/p fall from exercise ball platform - closed reduction performed in the ER by ortho - d/t open nature of fracture, will need IV ABX x48hrs; s/p cefazolin x1 in ER- will continue upon admission; appreciate ortho recs for when to transition to po and what agent would be best for this pt - pain control with tylenol PRN, dilaudid for breakthrough pain - will require outpatient ortho f/u BCC of nose - pt in current radiation tx with next appt tomorrow 10/05 at 1PM - pt would like to have her radiation performed tomorrow while hospitalized if possible - will get radiation as lazara while inpt Hypothyroidism - continue home levothyroxine 112 mcg daily Hx of TIA - continue plavix 75 mg daily, atorvastatin 40 mg daily VTE ppx: will defer in the setting of open fracture and expected short stay; if visit is prolonged, may need to consider addition of chemoppx (2) Basal cell carcinoma of nasal tip: (3) Interstitial lung disease: (4) GERD (gastroesophageal reflux disease): (5) Hx TIA/stroke w/o resid: (6) Hypothyroidism: Admission and Anticipated Discharge Date Admission Date: October 05, 2023 Supervising Physician Co-Signing Physician Notes I personally examined the patient and verified all rodriguez points of history and exam, discussed case, and agree with decision making with Dr Madison pain present but controlled w current meds. just worried about continuing XRT - dr madison reached out to radiation oncology and let them know that she's here and treatment could continue vitals noted nad heent nc at mmm breathing unlabored no accessory muscles good effort skin no rashes no pallor or icterus neuro no focal deficits open fx wrist - pain control, abx per ortho BCC - ongoing XRT DVT proph - ambulation Subjective Pt is a 78 yo female with PMH of osteoporosis, BCC currently undergoing radiation therapy, ILD, TIA (2022), and HLD presenting after a fall with open wrist fracture. Today, pt states she is feeling okay. She states that she has having some pain overnight but that IV medications help a lot. She states she took tylenol this morning and it helps but does not relieve it as much as she would like. Otherwise she states she is feeling well this morning. No questions or complaints at this time otherwise. Review of Systems Review of Systems: As per HPI Physical Exam Physical Exam: General:Alert and oriented, no acute distress, HEENT: Normocephalic, moist oral mucosa, Cardio: Regular rate and rhythm, no murmur, Resp:Lungs clear to auscultation b/l, no wheezes or rhonchi, GI: Soft and nontender, nondistended, bowel sounds active Skin: Warm, pink, dry, MSK: L wrist/forearm in cast Psych: Mood-affect congruence. Results & Data Results & Data Vital Signs (Past 12 Hours) Vital Signs Temp Pulse Resp BP Pulse Ox O2 Del Method 10/06/23 07:58 36.7 C 61 16 141/75 H 88 L Room Air 10/06/23 06:20 36.9 C 87 18 130/77 94 Room Air 10/06/23 01:30 36.9 C 55 L 16 141/89 H 94 Room Air 10/06/23 01:03 Room Air Resident Activity Tracking Resident Involvement: Resident Care Provided Care Provided: Adult Hospital Medicine
--- NOTE | 2023-10-06 13:07 | Billing Data ---
Date of Service October 06, 2023 Coding Level of Care Code 66014 SUB INP/OBS CARE
[2023-10-06] MEDS: MELATONIN 3 MG TAB PO PRN (20:51)
[2023-10-07 07:33] LABS: Hematocrit (blood only) 33.4 % (37.0-47.0); Hemoglobin 11.2 g/dl (12.0-16.0); Mean Corpuscular Hemoglobin 28.9 pg (25.0-34.0); Mean Corpuscular Hgb Conc 33.5 g/dL (32.0-36.0); Mean Corpuscular Volume 86.1 fL (80.0-100.0); Mean Platelet Volume 11.2 fL (9.4-12.4); Platelet Count 199 K/uL (130-400); RDW Coefficient of Variation 14.5 % (11.5-14.5); Red Blood Count 3.88 M/uL (4.20-5.40); White Blood Count 8.31 K/ul (4.8-10.8)
[2023-10-07 08:05] LABS: BUN Creatinine Ratio 14.7 (10-20); Calcium 9.7 mg/dl (8.6-10.3); Creatinine Clr Calc Pharmacy 43.5 ml/min; Est GFR (African American) 66.5 ml/min; Est GFR (Non-African American) 57.4 ml/min
--- NOTE | 2023-10-07 09:38 | Orthopedic Progress Note ---
Date of Service October 07, 2023 Assessment & Plan (1) Left wrist fracture: Plan: S/P Left wrist I&D, closed reduction in ED of left open distal radius fracture 10/04. Continues to do well Splint and sling in place Will continue with ice to left wrist as needed for pain/swelling. No use of left arm. No lifting. No pushing or pulling. Sling for comfort when in bed. May elevate on pillows when out of the sling to assist with edema and digits. She can continue with range of motion for digits as tolerated and this will assist with swelling as well. Continue medicine as primary service. Pain medication as needed for pain. Continue IV Ancef for 48 hours. Recommend upon discharge patient have a prescription for Keflex p.o. 4 times a day x 1 week Per orthopedics perspective patient is ready for discharge once medically cleared and completed IV antibiotics 48 hours. She will follow-up as an outpatient with [facility]. Discussed with spouse and patient do not recommend getting in the shower due to risk of falling however she can sponge bath. She may use a bag to keep splint clean and dry and glad wrap. Patient's spouse is persistent on getting an additional sling. I did discuss with PT, Brayden he will obtain a sling for patient to have an extra one. Admission and Anticipated Discharge Date Admission Date: October 05, 2023 Subjective Patient is a 78-year-old female who is status post a closed reduction and irrigation and debridement for an open left distal radius fracture placed in splint on 10/[address] Reees. She was seen this morning prior to leaving for radiation treatment her was present. She states she is doing well she has minimal pain in the left wrist. She states the swelling has subsided and she has some tingling but this is improving overall as well in the digits. She denies any fever or chills or night sweats. Her is requesting that she has an additional sling prior to leaving the hospital so they can use when she is able to shower. He is agreeable that if this is not covered via insurance he will pay [id number] for it. Review of Systems Review of Systems: Please refer to HPI Physical Exam Physical Exam: General: Patient is seated in transport chair. She is alert and oriented x [address]. She does not appear to be in any distress Integumentary/muscle skeletal: Sling is in place splint is in place. She does not appear to have any irritation surrounding the digits or thumb. The color and temperature is normal. She has minimal swelling in fingers and thumb. She is able to slightly flex and extend all digits including the thumb. Her sensation is intact. Her capillary refill is less than 2 seconds. Results & Data Vital Signs (Past 12 Hours) Vital Signs Temp Pulse Resp BP Pulse Ox O2 Del Method 10/07/23 07:45 36.9 C 52 L 16 137/66 92 Room Air 10/07/23 01:20 37.1 C 48 L 18 119/71 96 Room Air Laboratory Results 10/07/23 Range/Units 06:51 WBC 8.31 (4.8-10.8) K/ul RBC 3.88 L (4.20-5.40) M/uL Hgb 11.2 L (12.0-16.0) g/dl Hct 33.4 L (37.0-47.0) % MCV 86.1 (80.0-100.0) fL MCH 28.9 (25.0-34.0) pg MCHC 33.5 (32.0-36.0) g/dL RDW Std Deviation 46.0 (36.4-46.3) fL RDW Coeff of Abel 14.5 (11.5-14.5) % Plt Count 199 (130-400) K/uL MPV 11.2 (9.4-12.4) fL Sodium 137 (136-145) mmol/L Potassium 4.0 (3.5-5.1) mmol/L Chloride 105 (98-107) mmol/L Carbon Dioxide 28 (21-32) mmol/L Anion Gap 4 (3-11) BUN 14 (6-23) mg/dl Creatinine 0.95 (0.6-1.2) mg/dl Est Cr Clr Drug Dosing 43.5 ml/min Est GFR ( Amer) 66.5 ml/min Est GFR (Non-Af Amer) 57.4 ml/min BUN/Creatinine Ratio 14.7 (10-20) Glucose 103 H (70-99(Fasting)) mg/dl Calcium 9.7 (8.6-10.3) mg/dl
[2023-10-07] MEDS ORDERED: oxyCODONE HCL IR 5 MG TAB (IMMEDIATE RELEASE) PO PRN (09:50)
--- NOTE | 2023-10-07 10:18 | Hospitalist Progress Note ---
Date of Service October 07, 2023 Assessment & Plan (1) Left wrist fracture: Plan: Pt is a 78 yo female with PMH of osteoporosis, BCC currently undergoing radiation therapy, ILD, TIA (2022), and HLD presenting after a fall with open wrist fracture. Traumatic left wrist fracture - s/p fall from exercise ball platform - closed reduction performed in the ER by ortho - d/t open nature of fracture, will need IV ABX x48hrs; s/p cefazolin x1 in ER- will continue upon admission; appreciate ortho recs for when to transition to po and what agent would be best for this pt - pain control with tylenol PRN, dilaudid for breakthrough pain - will require outpatient ortho f/u - ortho consulted; IV ABs for 48 hours (last dose tomorrow am) and then Keflex qid for 1 week BCC of nose - pt in current radiation tx with next appt tomorrow 10/05 at 1PM - pt would like to have her radiation performed tomorrow while hospitalized if possible - will get radiation as lazara while inpt Hypothyroidism - continue home levothyroxine 112 mcg daily Hx of TIA - continue plavix 75 mg daily, atorvastatin 40 mg daily VTE ppx: will defer in the setting of open fracture and expected short stay; if visit is prolonged, may need to consider addition of chemoppx (2) Basal cell carcinoma of nasal tip: (3) Interstitial lung disease: (4) GERD (gastroesophageal reflux disease): (5) Hx TIA/stroke w/o resid: (6) Hypothyroidism: Admission and Anticipated Discharge Date Admission Date: October 05, 2023 Supervising Physician Co-Signing Physician Notes I personally examined the patient and verified all rodriguez points of history and exam, discussed case, and agree with decision making with Dr Madison pain better controlled. vitals noted nad heent nc at mmm breathing unlabored no accessory muscles good effort skin no rashes no pallor or icterus neuro no focal deficits age related osteoporosis with current acute pathologic fracture of L radius and ulna (open fracture) - pain controlled, abx per ortho BCC - ongoing XRT DVT proph - ambulation Subjective Pt is a 78 yo female with PMH of osteoporosis, BCC currently undergoing radiation therapy, ILD, TIA (2022), and HLD presenting after a fall with open wrist fracture. Today, pt states she is feeling okay. She states she is having some wrist soreness still but that she has been mostly taking tylenol and that has helped more than it had yesterday. Otherwise feeling well with no questions or complaints at this point in time. Review of Systems Review of Systems: As per HPI Physical Exam Physical Exam: General:Alert and oriented, no acute distress, HEENT: Normocephalic, moist oral mucosa, Cardio: Regular rate and rhythm, no murmur, Resp:Lungs clear to auscultation b/l, no wheezes or rhonchi, Skin: Warm, pink, dry, MSK: L wrist/forearm in cast Psych: Mood-affect congruence. Results & Data Results & Data Vital Signs (Past 12 Hours) Vital Signs Temp Pulse Resp BP Pulse Ox O2 Del Method 10/07/23 07:45 36.9 C 52 L 16 137/66 92 Room Air 10/07/23 01:20 37.1 C 48 L 18 119/71 96 Room Air Resident Activity Tracking Resident Involvement: Resident Care Provided Care Provided: Adult Hospital Medicine
--- NOTE | 2023-10-07 17:29 | Billing Data ---
Date of Service October 07, 2023 Coding Level of Care Code 09690 SUB INP/OBS CARE
--- NOTE | 2023-10-08 09:41 | Discharge Summary ---
Date of Service October 08, 2023 Admission HPI Per Admitting Provider Pt is a 78 yo female with PMH of osteoporosis, BCC, ILD, TIA (2022), and HLD presenting after a fall. Pt was on an exercise ball platform when she fell and broke her fall with her left hand. She had pain in her left wrist/hand and heard a pop when she fell. She denies hitting her head or losing consciousness. In the ER, pt was given ancef x1, 1L NS, 4 mg zofran x1, and fentanyl 50 mcg x2. Admission Exam Per Admitting Provider Constitutional: Minimal distress, vitals WNL. Respiratory: CTA bilaterally. Non labored breathing. No rhonchi, wheezing, or crackles. Cardiovascular: RRR. No murmurs noted. No LE edema. Musculoskeletal: Displaced fracture deformity noted of left wrist. Skin: No rashes or skin lesions noted. Neurologic: Sensation grossly intact. No FND appreciated. Psychiatric: Speech of normal pace and content. Mood and affect congruent. Principal Diagnosis left wrist fracture Discharge Exam General: AAOx3, afebrile, Left arm in sling, NAD Head: NC, AT CV: RRR, no r/m/g Pulm: CTA, normal respiratory effort, no respiratory distress GI: soft, non-distended, non-tender Extremities: no LE swelling, no calf tenderness bilaterally Discharge Data Allergies Allergy/AdvReac Type Severity Reaction Status Date / Time amoxicillin AdvReac Diarrhea Verified 10/03/23 13:28 Consultations 10/05/23 23:50 ED Decision to Admit Stat 10/06/23 01:37 Consult Orthopedic Surgery Routine Ordered Studies 10/05/23 21:48 CT head/brain wo con Stat Hospital Course (1) Left wrist fracture: Pt is a 78 yo female with PMH of osteoporosis, BCC currently undergoing radiation therapy, ILD, TIA (2022), and HLD presenting after a fall with open wrist fracture. Traumatic left wrist fracture (Acute, stable) - s/p fall from exercise ball platform - closed reduction performed in the ER by ortho -Status post 48 hours of Ancef IV, will transition to Keflex 500 mg p.o. twice daily for 7 days as per Ortho recommendations -Advised to continue pain control with Tylenol or oxycodone for severe pain after discharge -Patient scheduled to follow-up with orthopedics in outpatient clinic BCC of nose (chronic, stable) -Continue with outpatient dermatology follow-up Hypothyroidism (chronic, stable) - continue home levothyroxine 112 mcg daily Hx of TIA (chronic, stable) - continue plavix 75 mg daily, atorvastatin 40 mg daily Patient evaluated at bedside today and found to be awake alert and oriented in all spheres, afebrile, no acute distress. Overall, she is found fit and stable to be discharged today with outpatient follow-up from her PCP and her orthopedist as was advised. Prescription for p.o. antibiotics sent. All questions answered. (2) Basal cell carcinoma of nasal tip: (3) Interstitial lung disease: (4) GERD (gastroesophageal reflux disease): (5) Hx TIA/stroke w/o resid: (6) Hypothyroidism: Total Time Total Time Spent Total Time Spent (In Minutes): <30 Discharge Plan Discharge Items Patient Disposition: Home - Self-Care Reason For Visit: LEFT WRIST FRACTURE Discharge Diagnosis: s/p fracture of left wrist Condition on Discharge: Good Activity: Per Instructions section Non-emergency contact: Primary Care Provider and Specialist Call non-emergency contact if: your symptoms worsen and your temperature is above 101 Follow-up/Referrals: Bridget Perez MD [Primary Care Provider] - Javi Reese MD [Physician] - 10/13/23 9:30 am Diet: Heart Healthy Addtl Attending Provider Instructions: You were admitted to the hospital for management of a fracture that he sustained in your left wrist after you fell while doing exercises at home. The orthopedist saw you while you are in the hospital/emergency room and they performed what is called a closed reduction, meaning they corrected the placeme nt of your bone without having to do a surgery. Because your fracture was open, you needed to be on intravenous antibiotics for 2 days, which you completed during your hospital admission. We find you stable and fit to be discharged today with 7 days of oral antibiotics (Keflex) which you should take by mouth four times a day for 7 days. For pain control you can use Tylenol at home or oxycodone for severe pain. Please remember that if you do take the oxycodone, you should refrain from driving or using any heavy machinery as this medication can make you drowsy. Please follow-up with your orthopedist after discharge in the recommended time frames as detailed below. Additional discharge recommendations/instructions provided by her orthopedist are detailed below. A discharge summary will be sent to your primary care physician to ensure continuity of care. Please bring this discharge summary with you to your next office appointment so that your provider can review it at that time. Follow-up appointments: Make a follow-up appointment with your PCP within the next week. It is very important that you follow up with them shortly after discharge from the hospital. You have an appointment with Dr. Caldwell on 10/13/2023 at 9:30 am. If you are unable to make this appointment, or have any other questions, their office can be reached at [phone]. Keep all your follow-up appointments as already scheduled. If you cannot make an appointment, notify your provider. Medications: Your medication list has been reviewed and reconciled upon discharge to ensure accuracy and continuity of care. An updated list of all your medications is included with your hospital discharge paperwork. Please review this list closely, and make note of any changes. If you have any issues filling these prescriptions, please call [phone] and ask to leave a message for Dr. Gómez. Take your medications as instructed; do not skip a dose of your medicines. Make sure all of your doctors know every medicine you are taking (including nlad-eek-ohjncik medicines, vitamins, and supplements). Call your primary care provider before taking any new medicines (including over- the-counter medicines, vitamins, and supplements), because some of these may interact with your current medications, or may make your symptoms worse. Tell your primary care provider if you cannot afford your medications. CONTACT YOUR PRIMARY CARE PROVIDER if you experience any of the following: Worsening of symptoms Fever, chills, or fatigue Difficulty following your treatment plan, or difficulty taking medications CALL 911 OR GO TO THE EMERGENCY DEPARTMENT if you experience any of the following: Sudden, severe abdominal pain or nausea/vomiting Severe chest pain, or chest pain that radiates (moves) to your jaw or arm Sudden, severe shortness of breath or difficulty breathing Thank you for allowing us to participate in your care. Addtl Agriculture Specialist Provider Instructions: Keep splint in place, clean, and dry No pushing, pulling, lifting, or carrying with the left arm elevate the left arm and use ice over the splint x20-30 min as needed you may wiggle fingers as tolerated. Recommend antibiotic, keflex four times a day x1 week. May take oral probiotic (can obtain over the counter)while taking antibiotic Keep your follow up appointment with Dr. Reese's office as scheduled. Please call the office at [phone] if you have any questions or concerns. Pending Studies at Discharge: No Stand-Alone Forms: My [facility], Smoking Cessation Medications and DC Order Prescriptions: New oxycodone 5 mg tablet 5 mg PO TID PRN (Reason: pain severe) Qty: 7 0RF cephalexin 500 mg capsule 500 mg PO QID 7 Days Qty: 28 0RF Continued levothyroxine [Synthroid] 112 mcg tablet 112 mcg PO QAM Qty: 30 0RF cholecalciferol (vitamin D3) [Vitamin D3] 25 mcg (1,000 unit) tablet 1,000 unit PO QDL Qty: 90 3RF Rx Instructions: with the biggest meal of the day pantoprazole 40 mg tablet,delayed release (DR/EC) 40 mg PO BID Qty: 180 3RF riboflavin (vitamin B2) 400 mg tablet 400 mg PO QPM calcium citrate-vitamin D3 [Citracal-D3 Petites] 200 mg-6.25 mcg (250 unit) tablet 1 tab PO BID coQ10 (ubiquinol) [Qunol Andre CoQ10] 100 mg capsule 100 mg PO QPM ipratropium bromide 21 mcg (0.03 %) spray,non-aerosol 2 spray intranasal BID PRN (Reason: allergy symptoms) Qty: 30 12RF Rx Instructions: administer into each nostril Petadolex 50 mg Capsule 50 mg PO BID mecobalamin (vitamin B12) 1,000 mcg tablet,chewable 1,000 mcg PO 5XWK Patient Comments: takes mon-fri clopidogrel [Plavix] 75 mg tablet 75 mg PO QAM Probiotic 3 billion cell Capsule 3,000 mmu cells PO QAM Rx Instructions: administer with a meal fluticasone propionate 50 mcg/actuation spray,suspension 1 spray intranasal QAM PRN (Reason: Congestion) Rx Instructions: administer into each nostril atorvastatin 40 mg tablet 40 mg PO DAILY Discharge Orders: Discharge Order (Routine); Ordered 10/08/23 Ordered By: Shanda Gómez Admission Data Admit Date/Time: 10/05/23 23:39 Attending Provider: Bambi,Johnny R Admit Provider: Shyann Harris Primary Care Provider: Bridget Perez V. Other Providers: Catrachita Bear; Javi Reese Other Interventions: Discharge Summary Assessment (RN) Last Done: 10/08/23 12:44 Supervising Physician Co-Signing Physician Notes I personally examined the patient and verified all rodriguez points of history and exam, discussed case, and agree with decision making with Dr Gómez pain controlled, feels up to going home vitals noted nad heent nc at mmm breathing unlabored no accessory muscles good effort skin no rashes no pallor or icterus neuro no focal deficits age related osteoporosis with current acute pathologic fracture of L radius and ulna (open fracture) - pain controlled, safe for home on PO abx BCC - ongoing XRT DVT proph - ambulation safe/stable for home, otherwise as above Resident Activity Tracking Resident Involvement: Resident Care Provided Care Provided: Adult Hospital Medicine
--- NOTE | 2023-10-08 16:39 | Billing Data ---
Date of Service October 08, 2023 Coding Level of Care Code 61544 IN/OBS DISCH 30 MIN/LESS
== END 2023-10-08 13:15 | disposition home or self-care (01) | DRG 500 ==
LOC: ED 20:31 → SUATTDRO 23:39 → 3N 23:39